=== PATIENT | male | born 1985 ===

== ENCOUNTER 2017-10-27 09:22 | Inpatient (IN) | payer MEDICAID ==
[2017-10-27 09:22] VITALS: BMI 32.1
--- NOTE | 2017-10-27 10:11 | ED PDOC ---
Lower Extremity Pain/Injury Time Seen by Provider: 10/27/17 09:45 Chief Complaint (Nursing): Lower Extremity Problem/Injury Chief Complaint (Provider): Lower Extremity Problem/Injury History Per: Patient History/Exam Limitations: no limitations Onset/Duration Of Symptoms: Days (x3) Current Symptoms Are (Timing): Still Present Additional Complaint(s): 32 year old male with medical history of asthma, pre-diabetes and hypertension, presents to the emergency department with a complaint of bilateral leg swelling associated with mild shortness of breath and cough ongoing for 3 days. He denied any chest pain, leg redness, fall, trauma or urinary complaints. Patient was recently discharged from prolonged hospital admission for liver failure secondary to alcohol use. Of note, patient is a recovering alcoholic and denied any history of CHF or blood clots. PMD: none provided Past Medical History Reviewed: Historical Data, Nursing Documentation, Vital Signs Vital Signs: Last Vital Signs Temp 99 F 10/27/17 09:35 Pulse 110 H 10/27/17 09:35 Resp 20 10/27/17 09:35 BP Pulse Ox 95 10/27/17 09:35 - Medical History PMH: Anemia, Anxiety, Back Problems, Bipolar Disorder, Depression, Gall Bladder Disease, HTN (No Meds), Seizures (Last 2014) Denies: CHF, Diabetes, Hepatitis, HIV, Chronic Kidney Disease, Sexually Transmitted Disease - Surgical History Surgical History: Cholecystectomy ([facility] 2014) - Family History Family History: States: Unknown Family Hx - Social History Current smoker - smoking cessation education provided: No Alcohol: None Drugs: Denies - Immunization History Hx Tetanus Toxoid Vaccination: No Hx Influenza Vaccination: No Hx Pneumococcal Vaccination: No - Home Medications Home Medications: Ambulatory Orders Medication Instructions Recorded Ferrous Sulfate [Feosol] 325 mg PO TID 10/27/17 Folic Acid 1 mg PO DAILY 10/27/17 Gabapentin [Neurontin] 600 mg PO HS 10/27/17 Mirtazapine [Remeron] 15 mg PO HS 10/27/17 Furosemide [Lasix] 40 mg PO DAILY #14 tab 10/30/17 Ibuprofen [Motrin Tab] 800 mg PO BID PRN tab 10/30/17 Spironolactone [Aldactone] 50 mg PO DAILY #14 tab 10/30/17 - Allergies Allergies/Adverse Reactions: Allergies Allergy/AdvReac Type Severity Reaction Status Date / Time SHELLFISH Allergy SWELLING Uncoded 09/11/17 16:44 Review of Systems ROS Statement: Except As Marked, All Systems Reviewed And Found Negative Cardiovascular: Negative for: Chest Pain Respiratory: Positive for: Cough, Shortness of Breath (mild) Genitourinary Male: Negative for: Dysuria, Hematuria Musculoskeletal: Positive for: Other (bilateral leg swelling). Negative for: Leg Pain (or redness bilaterally) Physical Exam - Reviewed Nursing Documentation Reviewed: Yes Vital Signs Reviewed: Yes - Physical Exam Appears: Positive for: Non-toxic, No Acute Distress Head Exam: Positive for: ATRAUMATIC, NORMAL INSPECTION, NORMOCEPHALIC Cardiovascular/Chest: Positive for: Regular Rate, Rhythm Respiratory: Positive for: Normal Breath Sounds (fair bilaterally). Negative for: Decreased Breath Sounds, Wheezing, Respiratory Distress Gastrointestinal/Abdominal: Positive for: Other (obese appearance) Extremity: Positive for: Pedal Edema (3+ bilaterally). Negative for: Deformity (lower) Neurologic/Psych: Positive for: Alert, Oriented - Laboratory Results Result Diagrams: 10/29/17 06:50 10/29/17 06:50 - ECG O2 Sat by Pulse Oximetry: 95 (RA) Pulse Ox Interpretation: Normal Medical Decision Making Medical Decision Making: Initial Impression: Leg edema Differential Diagnosis: DVT; CHF; Sequelae of liver failure Initial Plan: * Alcohol serum * BNP * CMP * CBC * PTT * PT * CXR * US duplex LE Time: 1033 --CXR FINDINGS: LUNGS: No active pulmonary disease. PLEURA: No significant pleural effusion identified. No pneumothorax apparent. CARDIOVASCULAR: Normal. OSSEOUS STRUCTURES: No significant abnormalities. VISUALIZED UPPER ABDOMEN: Normal. OTHER FINDINGS: None. IMPRESSION: Bibasilar patchy opacity, right greater than left. Possible bilateral pneumonia. Followup advised. Time: 1139 --US duplex LE FINDINGS: To compressibility, augmentation, morphology and phasic color Doppler blood flow is appreciate within the bilateral common and superficial femoral and popliteal veins with the bilateral post tibial veins patent. Note is made of bilateral subcutaneous edema overlying calves. 2.2 x 0.7 cm lymph node is seen at at the right inguinal/ proximal anterior thigh deep soft tissues. OTHER FINDINGS: None. IMPRESSION: No sonographic evidence of deep venous thrombosis bilateral lower extremities. Incidental mildly enlarged lymph node distal right inguinal region/proximal right anterior thigh. --------- treatment was initiated for HCAP given recent hospitalization and CXR findings to follow anemia, PRBC. Admit Dr Shea Scribe Attestation: Documented by Anisa Marc, acting as a scribe for Luis Felipe Dickey III, DO. Provider Scribe Attestation: All medical record entries made by the Scribe were at my direction and personally dictated by me. I have reviewed the chart and agree that the record accurately reflects my personal performance of the history, physical exam, medical decision making, and the department course for this patient. I have also personally directed, reviewed, and agree with the discharge instructions and disposition. Disposition - Clinical Impression Clinical Impression: HCAP (healthcare-associated pneumonia), Anemia, Alcoholic liver failure - Patient ED Disposition Is Patient to be Admitted: Yes - Disposition Disposition Time: 11:30 Condition: FAIR - Pt Status Changed To: Hospital Disposition Of: Inpatient - Admit Certification Admit to Inpatient:: After my assessment, the patient will require hospitalization for at least two midnights. This is because of the severity of symptoms shown, intensity of services needed, and/or the medical risk in this patient being treated as an outpatient. - POA Present On Arrival: None
[2017-10-27 10:22] LABS: BASO # 0.1 K/uL (0.0-0.2); BASO % 0.5 % (0.0-2.0); EOS # 0.1 K/uL (0.0-0.7); EOS % 0.5 % (0.0-4.0); HEMOGLOBIN 7.4 g/dL (12.0-18.0); LYMPH # 2.5 K/uL (1.0-4.3); LYMPH % 14.7 % (20.0-40.0); MEAN CELL VOLUME 83.6 fl (80.0-94.0); MEAN CORPUSCULAR HEMOGLOBIN 25.8 pg (27.0-31.0); MEAN CORPUSCULAR HGB CONC 30.9 g/dL (33.0-37.0); MEAN PLATELET VOLUME 7.4 fl (7.2-11.7); MONO % 5.7 % (0.0-10.0); NEUT # 13.2 K/uL (1.8-7.0); NEUT % 78.6 % (50.0-75.0); RBC 2.87 Mil/uL (4.40-5.90); RED CELL DISTRIBUTION WIDTH 19.8 % (11.5-14.5); WHITE BLOOD COUNT 16.8 K/uL (4.8-10.8)
[2017-10-27 10:34] LABS: INR 1.7 (0.9-1.2); PARTIAL THROMBOPLASTIN TIME 32.7 Seconds (25.6-37.1); PROTHROMBIN TIME 18.7 Seconds (9.8-13.1)
--- NOTE | 2017-10-27 10:35 | RAD ---
HISTORY: chest pain/ r/o infiltrate COMPARISON: 08/06/2014 TECHNIQUE: Patchy opacity at both lung bases, right greater than left. Possible pneumonia. Follow-up advised. FINDINGS: LUNGS: No active pulmonary disease. PLEURA: No significant pleural effusion identified. No pneumothorax apparent. CARDIOVASCULAR: Normal. OSSEOUS STRUCTURES: No significant abnormalities. VISUALIZED UPPER ABDOMEN: Normal. OTHER FINDINGS: None. IMPRESSION: Bibasilar patchy opacity, right greater than left. Possible bilateral pneumonia. Followup advised.
[2017-10-27 10:47] LABS: ALB/GLOB RATIO 0.8 (1.0-2.1); ALT/SGPT 75 U/L (21-72); AST/SGOT 56 U/L (17-59); BLOOD UREA NITROGEN 19 mg/dl (9-20); CALCIUM 8.4 mg/dL (8.4-10.2); GFR AFRICAN-AMERICAN > 60; GFR NON-AFRICAN AMERICAN > 60
[2017-10-27 10:54] LABS: B-TYPE NATRIURETIC PEPTIDE 550 pg/ml (0-450)
--- NOTE | 2017-10-27 11:41 | US ---
PROCEDURE: Bilateral lower extremity venous duplex Doppler. HISTORY: edema COMPARISON: None available. TECHNIQUE: Bilateral common femoral, superficial femoral, popliteal and posterior tibial veins were evaluated. Flow was assessed with color Doppler, compressibility, assessment of phasic flow and augmentation response. FINDINGS: To compressibility, augmentation, morphology and phasic color Doppler blood flow is appreciate within the bilateral common and superficial femoral and popliteal veins with the bilateral post tibial veins patent. Note is made of bilateral subcutaneous edema overlying calves. 2.2 x 0.7 cm lymph node is seen at at the right inguinal/ proximal anterior thigh deep soft tissues. OTHER FINDINGS: None. IMPRESSION: No sonographic evidence of deep venous thrombosis bilateral lower extremities. Incidental mildly enlarged lymph node distal right inguinal region/proximal right anterior thigh.
[2017-10-27] MEDS ORDERED: Piperacillin/Tazobact 3.375 GM in Sodium Chloride 0.9% 100 ML IVPB STA (12:40)
[2017-10-27 12:51] LABS: VENOUS BLOOD GAS BASE EXCESS 8.1 mmol/L (0.0-2.0); VENOUS BLOOD GAS PCO2 48 mmHg (40-60); VENOUS BLOOD GAS PO2 41 mm/Hg (30-55); VENOUS BLOOD PH 7.45 (7.32-7.43)
[2017-10-27] MEDS ORDERED: Piperacillin/Tazobact 3.375 gm Inj IVPB ONE (13:08)
--- NOTE | 2017-10-27 13:13 | CP.PCM.HP ---
<AndradeOsiel - Last Filed: 10/27/17 14:28> History of Present Illness - History of Present Illness History of Present Illness: 32 y/o M with Hx of obesity, Gastric bypass Sx, etoh and opioid abuse, recently diagnosed with alcoholic liver disease and chronic anemia presented to ED c/o worsening LE edema, cough and fatigue. As per patient he was admitted to [facility] 1 month ago after being diagnosed with liver disease and anemia when he presented for detox program for etoh and opioid abuse. As per patient he started drinking in Jul 2015 about 1 gallon per day of whiskey until 1 month ago. hE also admits taking percocet 4 times a day at home that he buys on the street for chronic lower back pain for what he also takes Gabapentin. report Hx of gastric bypass Sx many years ago and is not taking any supplements as advised. Patient has been noticing worsening LE edema for the past week as well as fatigue and dry cough for 3-4 days that Yesterday became productive with brownish sputum. Afebrile. Denies sick contacts, liver with Uncle. Present on Admission - Present on Admission Any Indicators Present on Admission: No Review of Systems - Review of Systems All systems: reviewed and no additional remarkable complaints except - Constitutional Constitutional: Fatigue - Cardiovascular Cardiovascular: Pedal Edema - Respiratory Respiratory: Cough Past Patient History - Past Medical History & Family History Past Medical History?: Yes - Past Social History Alcohol: Other (Heavy drinker till 1 month ago) Drugs: Opiates (Percocet) Home Situation {Lives}: With Family - CARDIAC Hx Congestive Heart Failure: No Hx Hypertension: Yes (No Meds) - PULMONARY Hx Respiratory Disorders: No - NEUROLOGICAL Hx Seizures: Yes (Last 2014) - HEENT Hx HEENT Problems: No - RENAL Hx Chronic Kidney Disease: No - ENDOCRINE/METABOLIC Other/Comment: Prediabetes - HEMATOLOGICAL/ONCOLOGICAL Hx Anemia: Yes Hx Human Immunodeficiency Virus (HIV): No Other/Comment: Alcoholic hepatitis - INTEGUMENTARY Hx Dermatological Problems: No - MUSCULOSKELETAL/RHEUMATOLOGICAL Hx Falls: Yes (2 WEEKS AGO) - GASTROINTESTINAL Hx Gall Bladder Disease: Yes - GENITOURINARY/GYNECOLOGICAL Hx Sexually Transmitted Disorders: No - PSYCHIATRIC Hx Anxiety: Yes Hx Bipolar Disorder: Yes Hx Depression: Yes - SURGICAL HISTORY Hx Cholecystectomy: Yes ([facility] 2014) - ANESTHESIA Hx Anesthesia: Yes Hx Anesthesia Reactions: No Hx Malignant Hyperthermia: No Meds Allergies/Adverse Reactions: Allergies Allergy/AdvReac Type Severity Reaction Status Date / Time SHELLFISH Allergy SWELLING Uncoded 09/11/17 16:44 Physical Exam - Constitutional Appears: Other (Obese) - Eye Exam Eye Exam: EOMI, PERRL - ENT Exam ENT Exam: Mucous Membranes Moist - Respiratory Exam Respiratory Exam: Decreased Breath Sounds (B/L), NORMAL BREATHING PATTERN. absent: Wheezes, Respiratory Distress - Cardiovascular Exam Cardiovascular Exam: REGULAR RHYTHM, +S1, +S2. absent: Gallop - GI/Abdominal Exam GI & Abdominal Exam: Normal Bowel Sounds, Soft. absent: Rebound, Rigid, Tenderness - Extremities Exam Extremities exam: Positive for: normal capillary refill, pedal edema (+2). Negative for: calf tenderness, tenderness - Neurological Exam Neurological exam: Alert, Normal Gait, Oriented x3 - Psychiatric Exam Psychiatric exam: Normal Affect, Normal Mood - Skin Skin Exam: Pallor, Warm Results - Vital Signs Recent Vital Signs: Last Vital Signs Temp 99 F 10/27/17 09:35 Pulse 110 H 10/27/17 09:35 Resp 20 10/27/17 09:35 BP 113/63 10/27/17 11:51 Pulse Ox 95 10/27/17 11:45 - Labs Result Diagrams: 10/27/17 10:19 10/27/17 10:19 Labs: Laboratory Results - last 24 hr 10/27/17 10/27/17 10/27/17 10:19 10:19 10:19 WBC 16.8 H D RBC 2.87 L Hgb 7.4 L D Hct 24.0 L MCV 83.6 D MCH 25.8 L MCHC 30.9 L RDW 19.8 H Plt Count 148 MPV 7.4 Neut % (Auto) 78.6 H Lymph % (Auto) 14.7 L [place] % (Auto) 5.7 Eos % (Auto) 0.5 Baso % (Auto) 0.5 Neut # (Auto) 13.2 H Lymph # (Auto) 2.5 [place] # (Auto) 1.0 H Eos # (Auto) 0.1 Baso # (Auto) 0.1 PT 18.7 H INR 1.7 H APTT 32.7 pO2 VBG pH VBG pCO2 VBG HCO3 VBG Total CO2 VBG O2 Sat (Calc) VBG Base Excess VBG Potassium Glucose Lactate FiO2 Sodium 141 Potassium 3.7 Chloride 101 Carbon Dioxide 29 Anion Gap 15 BUN 19 Creatinine 0.6 L Est GFR ( Amer) > 60 Est GFR (Non-Af Amer) > 60 Random Glucose 86 Calcium 8.4 Total Bilirubin 2.5 H AST 56 ALT 75 H D Alkaline Phosphatase 104 NT-Pro-B Natriuret Pep 550 H Total Protein 6.7 Albumin 3.0 L Globulin 3.7 Albumin/Globulin Ratio 0.8 L Venous Blood Potassium Alcohol, Quantitative < 10 10/27/17 12:47 WBC RBC Hgb Hct MCV MCH MCHC RDW Plt Count MPV Neut % (Auto) Lymph % (Auto) [place] % (Auto) Eos % (Auto) Baso % (Auto) Neut # (Auto) Lymph # (Auto) [place] # (Auto) Eos # (Auto) Baso # (Auto) PT INR APTT pO2 41 VBG pH 7.45 H VBG pCO2 48 VBG HCO3 30.7 VBG Total CO2 34.9 H VBG O2 Sat (Calc) 81.6 H VBG Base Excess 8.1 H VBG Potassium 3.6 Glucose 83 Lactate 0.8 FiO2 21.0 Sodium 140.0 Potassium Chloride 108.0 H Carbon Dioxide Anion Gap BUN Creatinine Est GFR ( Amer) Est GFR (Non-Af Amer) Random Glucose Calcium Total Bilirubin AST ALT Alkaline Phosphatase NT-Pro-B Natriuret Pep Total Protein Albumin Globulin Albumin/Globulin Ratio Venous Blood Potassium 3.6 Alcohol, Quantitative Assessment & Plan - Assessment and Plan (Free Text) Assessment: 32 y/o admitted for HCAP and Anemia HCAP CXR suspected Pneumonia Hx of recent hosp admission C/w Vanco/Zosyn Duonebs PRN Afebrile Elevated WBC Anemia, microcitic Hgb 7s Poss chronic disease Vit b12/Folate and iron studies 1 month ago unremarkable Hx of gastric bypass C/W IRON PO 1 unit of PRBC ordered No active bleeding LE Edema/Fatigue ProBnp 550 LE US neg for DVT Elevate legs/antiembolic stocking F/U Echo Lasix 40mg PO once <Kostas Shea - Last Filed: 10/31/17 15:02> Results - Vital Signs Recent Vital Signs: Last Vital Signs Temp 98.9 F 10/30/17 08:53 Pulse 94 H 10/30/17 08:53 Resp 20 10/30/17 08:53 BP 127/86 10/30/17 08:53 Pulse Ox 96 10/30/17 08:53 - Labs Result Diagrams: 10/29/17 06:50 10/29/17 06:50 Assessment & Plan - Assessment and Plan (Free Text) Plan: Saw and examined patient with resident. Plan of care discussed, agree with above
[2017-10-27] MEDS ORDERED: Albuterol-Ipratrop 3 mg / 0.5 (3 ml) UD INH PRN (14:27)
[2017-10-27] MEDS: Piperacillin/Tazobact 3.375 GM in Sodium Chloride 0.9% 100 ML IVPB SCH ×2 (21:20→21:54)
[2017-10-28] MEDS: Piperacillin/Tazobact 3.375 GM in Sodium Chloride 0.9% 100 ML IVPB SCH ×5 (04:07→21:46)
[2017-10-28 07:22] LABS: URINE BACTERIA FEW (<OCC); URINE BILIRUBIN NEGATIVE (NEGATIVE); URINE BLOOD MODERATE (NEGATIVE); URINE CLARITY CLEAR (Clear); URINE COLOR YELLOW (YELLOW); URINE GLUCOSE (UA) NEG (Normal); URINE LEUKOCYTE ESTERASE NEG Leu/uL (Negative); URINE PROTEIN NEGATIVE (NEGATIVE)
[2017-10-28 07:34] LABS: BASO % 0.5 % (0.0-2.0); EOS # 0.1 K/uL (0.0-0.7); EOS % 1.3 % (0.0-4.0); HEMOGLOBIN 7.9 g/dL (12.0-18.0); LYMPH # 2.3 K/uL (1.0-4.3); LYMPH % 24.2 % (20.0-40.0); MEAN CORPUSCULAR HEMOGLOBIN 26.8 pg (27.0-31.0); MEAN CORPUSCULAR HGB CONC 32.7 g/dL (33.0-37.0); MEAN PLATELET VOLUME 7.5 fl (7.2-11.7); MONO # 0.5 K/uL (0.0-0.8); MONO % 5.6 % (0.0-10.0); NEUT # 6.5 K/uL (1.8-7.0); NEUT % 68.4 % (50.0-75.0); RBC 2.95 Mil/uL (4.40-5.90); WHITE BLOOD COUNT 9.6 K/uL (4.8-10.8)
[2017-10-28 08:03] LABS: ALB/GLOB RATIO 0.8 (1.0-2.1); ALBUMIN 2.8 g/dL (3.5-5.0); ALT/SGPT 63 U/L (21-72); AST/SGOT 52 U/L (17-59); BLOOD UREA NITROGEN 14 mg/dl (9-20); CALCIUM 8.3 mg/dL (8.4-10.2); GFR AFRICAN-AMERICAN > 60; GFR NON-AFRICAN AMERICAN > 60
[2017-10-28] MEDS ORDERED: DiphenhydrAMINE 50 mg/ml Inj IVP STA (10:48)
--- NOTE | 2017-10-28 14:01 | CARD ---
APPROVED REPORT EXAM: Two-dimensional and M-mode echocardiogram with Doppler and color Doppler. Other Information Quality : GoodRhythm : NSR Technically limited study due to body habitus. INDICATION Peripheral Edema 2D DIMENSIONS IVSd1.09 (0.7-1.1cm)LVDd6.03 (3.9-5.9cm) LVOT Diameter2.36 (1.8-2.4cm)PWd1.07 (0.7-1.1cm) IVSs1.42 (0.8-1.2cm)LVDs3.76 (2.5-4.0cm) FS (%) 37.7 %PWs1.53 (0.8-1.2cm) M-Mode DIMENSIONS Left Atrium (MM)5.27 (2.5-4.0cm)IVSd1.01 (0.7-1.1cm) Aortic Root3.42 (2.2-3.7cm)LVDd8.14 (4.0-5.6cm) Aortic Cusp Exc.2.44 (1.5-2.0cm)PWd1.12 (0.7-1.1cm) IVSs1.75 cmFS (%) 36 % LVDs5.17 (2.0-3.8cm)PWs1.36 cm Mitral Valve E/A ratio0.0 TDI E/Lateral E'0.0E/Medial E'0.0 Pulmonary Valve PV Peak [id number]/s Tricuspid Valve TR Peak [id number] [id number] Peak Gr.26mmHg [id number] LEFT VENTRICLE The left ventricle is normal size. There is normal left ventricular wall thickness. Left ventricle systolic function is normal. The Ejection Fraction is 60-65%. There is normal LV segmental wall motion. The left ventricular diastolic function is normal. RIGHT VENTRICLE The right ventricle is normal size. There is normal right ventricular wall thickness. The right ventricular systolic function is normal. ATRIA The left atrium size is normal. The right atrium size is normal. AORTIC VALVE The aortic valve is normal in structure. No aortic regurgitation is present. There is no aortic valvular stenosis. MITRAL VALVE The mitral valve is normal in structure. There is no evidence of mitral valve prolapse. There is no mitral valve stenosis. There is no mitral valve regurgitation noted. TRICUSPID VALVE The tricuspid valve is normal in structure. There is mild tricuspid regurgitation. Right ventricular systolic pressure is estimated at 44 mmHg. There is mild-moderate pulmonary hypertension. PULMONIC VALVE The pulmonary valve is normal in structure. There is no pulmonic valvular regurgitation. GREAT VESSELS The aortic root is normal in size. Due to poor image quality, the IVC could not be assessed. PERICARDIAL EFFUSION The pericardium appears normal. <Conclusion> The left ventricle is normal size. There is normal left ventricular wall thickness. There is normal LV segmental wall motion. Left ventricle systolic function is normal. The Ejection Fraction is 60-65%. The left ventricular diastolic function is normal.
--- NOTE | 2017-10-28 15:00 | CARD ---
APPROVED REPORT EKG Measurement Heart [id number] <Conclusion> Normal sinus rhythm Normal ECG
--- NOTE | 2017-10-28 17:23 | CP.PCM.PN ---
Subjective - Date & Time of Evaluation Date of Evaluation: 10/28/17 Time of Evaluation: 12:00 - Subjective Subjective: Patient complains of vague diffused pain on most of his body and joints and claims that he has been on Percocet 10 mg for a long time that it may a withdrawal sx. Has no headaches Has no chest pain Noted elevated bilirubin Claims that his last alcohol intake was a month ago. Still with bilateral leg edema pitting. Noted normal WBc but Hgb remains low even after transfusion Now at 7.9 Objective - Vital Signs/Intake and Output Vital Signs (last 24 hours): Temp Pulse Resp BP Pulse Ox 99.1 F 91 H 20 133/90 98 10/28/17 17:06 10/28/17 16:36 10/28/17 16:36 10/28/17 17:13 10/28/17 16:36 - Medications Medications: Current Medications Albuterol/Ipratropium (Duoneb 3 Mg/0.5 Mg (3 Ml) Ud) 3 ml INH RQ6 PRN PRN Reason: Shortness of Breath Diphenhydramine HCl (Benadryl) 25 mg PO HS PRN PRN Reason: Insomnia Last Admin: 10/28/17 02:25 Dose: 25 mg Ferrous Sulfate (Feosol) 325 mg PO TID [facility] Last Admin: 10/28/17 17:05 Dose: 325 mg Folic Acid (Folic Acid) 1 mg PO DAILY [facility] Last Admin: 10/28/17 10:12 Dose: 1 mg Furosemide (Lasix) 40 mg PO DAILY [facility] Last Admin: 10/28/17 17:13 Dose: 40 mg Gabapentin (Neurontin) 600 mg PO HS [facility] Last Admin: 10/27/17 21:52 Dose: 600 mg Vancomycin HCl 1 gm/ Sodium (Chloride) 250 mls @ 166.667 mls/hr IVPB Q12 [facility] PRN Reason: Protocol Last Admin: 10/28/17 11:45 Dose: 166.667 mls/hr Piperacillin Sod/Tazobactam (Sod 3.375 gm/ Sodium Chloride) 100 mls @ 100 mls/ hr IVPB Q6 [facility] PRN Reason: Protocol Last Admin: 10/28/17 17:17 Dose: 100 mls/hr Ibuprofen (Motrin Tab) 800 mg PO BID PRN PRN Reason: Pain, Mild (1-3) Last Admin: 10/28/17 17:06 Dose: 800 mg Spironolactone (Aldactone) 50 mg PO DAILY [facility] Last Admin: 10/28/17 17:05 Dose: 50 mg Tramadol HCl (Ultram) 50 mg PO Q6 PRN PRN Reason: Pain, moderate (4-7) Last Admin: 10/28/17 11:54 Dose: 50 mg - Labs Labs: 10/28/17 06:04 10/28/17 06:04 PT 18.7 Seconds (9.8-13.1) H 10/27/17 10:19 INR 1.7 (0.9-1.2) H 10/27/17 10:19 APTT 32.7 Seconds (25.6-37.1) 10/27/17 10:19
[2017-10-29] MEDS: DiphenhydrAMINE 50 mg/ml Inj IVP PRN ×3 (00:32→17:23)
[2017-10-29] MEDS: Piperacillin/Tazobact 3.375 GM in Sodium Chloride 0.9% 100 ML IVPB SCH ×4 (04:11→22:49)
[2017-10-29 08:43] LABS: MEAN CELL VOLUME 83.3 fl (80.0-94.0); MEAN CORPUSCULAR HEMOGLOBIN 26.8 pg (27.0-31.0); MEAN CORPUSCULAR HGB CONC 32.2 g/dL (33.0-37.0); RBC 3.35 Mil/uL (4.40-5.90); RED CELL DISTRIBUTION WIDTH 19.3 % (11.5-14.5); WHITE BLOOD COUNT 7.2 K/uL (4.8-10.8)
[2017-10-29 08:49] LABS: BLOOD UREA NITROGEN 9 mg/dl (9-20); CALCIUM 8.5 mg/dL (8.4-10.2); GFR AFRICAN-AMERICAN > 60; GFR NON-AFRICAN AMERICAN > 60
[2017-10-29 09:17] LABS: FERRITIN 33.6 ng/Ml (17.9-464)
--- NOTE | 2017-10-29 10:19 | US ---
HISTORY: attention liver and gallbladder COMPARISON: CT scan April 02, 2015 TECHNIQUE: Sonographic evaluation of the right upper quadrant of the abdomen. FINDINGS: LIVER: Measures 17.7 cm in length. Diffusely increased echogenicity of the liver parenchyma. There is evidence of a small ovoid non hypervascular cystic area in the left lobe of the liver measuring 2.5 x 1.3 x 2.7 centimeters. No internal echoes or wall thickening is seen. This was not seen on the prior CT scan and may reflect a hepatic cyst and/or other adjacent postsurgical change from the patient's previous bypass surgery. This may be slightly extrinsic to the left lobe of the liver on a few of the images. No other focal mass is seen in the liver. No intrahepatic ductal dilatation is seen. GALLBLADDER: Removed COMMON BILE DUCT: Measures 5 mm. No stones. No dilatation. PANCREAS: Suboptimally visualized due to overlying bowel gas and body habitus. No appreciable peripancreatic inflammatory changes are noted. RIGHT KIDNEY: Measures 14 cm in length. Normal echogenicity. No calculus, mass, or hydronephrosis. AORTA: Visualized aorta is unremarkable although limited by overlying bowel gas. IVC: Unremarkable. OTHER FINDINGS: Exam is limited by body habitus. IMPRESSION: Enlarged liver with moderate fatty infiltration. No intrahepatic ductal dilatation is seen. Common bile duct measures 5 millimeters. Small smoothly marginated benign-appearing hypoechoic cystic structure in the liver or abutting the left lobe of the liver. Status post cholecystectomy. Limited evaluation of the pancreas.
--- NOTE | 2017-10-29 10:22 | RAD ---
HISTORY: pneumonia COMPARISON: 10/27/2017 FINDINGS: LUNGS: No new focal infiltrate. Minimal volume loss at the lung bases. PLEURA: No significant pleural effusion identified, no pneumothorax apparent. CARDIOVASCULAR: Heart is enlarged. OSSEOUS STRUCTURES: No significant abnormalities. VISUALIZED UPPER ABDOMEN: Normal. OTHER FINDINGS: None. IMPRESSION: No new focal infiltrate. Cardiomegaly.
[2017-10-29 17:14] LABS: FOLATE > 20.0 ng/mL
--- NOTE | 2017-10-29 22:32 | CP.PCM.PN ---
Subjective - Date & Time of Evaluation Date of Evaluation: 10/29/17 Time of Evaluation: 08:35 - Subjective Subjective: Patient still has a lot of pain on different areas of the body mikhail on different upper body joints. Has no chest pain or SOB. Has minimal cough. Objective - Vital Signs/Intake and Output Vital Signs (last 24 hours): Temp Pulse Resp BP Pulse Ox 98.6 F 89 20 116/66 96 10/29/17 20:00 10/29/17 20:00 10/29/17 20:00 10/29/17 20:00 10/29/17 20:00 Intake and Output: 10/29/17 10/30/17 18:59 06:59 Intake Total 1850 Balance 1850 - Medications Medications: Current Medications Albuterol/Ipratropium (Duoneb 3 Mg/0.5 Mg (3 Ml) Ud) 3 ml INH RQ6 PRN PRN Reason: Shortness of Breath Diphenhydramine HCl (Benadryl) 25 mg PO HS PRN PRN Reason: Insomnia Last Admin: 10/28/17 21:55 Dose: 25 mg Diphenhydramine HCl (Benadryl) 50 mg IVP Q8 PRN PRN Reason: Agitation Last Admin: 10/29/17 17:23 Dose: 50 mg Ferrous Sulfate (Feosol) 325 mg PO TID [facility] Last Admin: 10/29/17 17:17 Dose: 325 mg Folic Acid (Folic Acid) 1 mg PO DAILY [facility] Last Admin: 10/29/17 08:49 Dose: 1 mg Furosemide (Lasix) 40 mg PO DAILY [facility] Last Admin: 10/29/17 08:51 Dose: 40 mg Gabapentin (Neurontin) 600 mg PO HS [facility] Last Admin: 10/28/17 21:46 Dose: 600 mg Vancomycin HCl 1 gm/ Sodium (Chloride) 250 mls @ 166.667 mls/hr IVPB Q12 [facility] PRN Reason: Protocol Last Admin: 10/29/17 08:38 Dose: 166.667 mls/hr Piperacillin Sod/Tazobactam (Sod 3.375 gm/ Sodium Chloride) 100 mls @ 100 mls/ hr IVPB Q6 [facility] PRN Reason: Protocol Last Admin: 10/29/17 17:18 Dose: 100 mls/hr Ibuprofen (Motrin Tab) 800 mg PO BID PRN PRN Reason: Pain, Mild (1-3) Last Admin: 10/29/17 00:32 Dose: 800 mg Spironolactone (Aldactone) 50 mg PO DAILY [facility] Last Admin: 10/29/17 08:37 Dose: 50 mg Tramadol HCl (Ultram) 50 mg PO Q6 PRN PRN Reason: Pain, moderate (4-7) Last Admin: 10/28/17 11:54 Dose: 50 mg - Labs Labs: 10/29/17 06:50 10/29/17 06:50 PT 18.7 Seconds (9.8-13.1) H 10/27/17 10:19 INR 1.7 (0.9-1.2) H 10/27/17 10:19 APTT 32.7 Seconds (25.6-37.1) 10/27/17 10:19
[2017-10-30] MEDS: DiphenhydrAMINE 50 mg/ml Inj IVP PRN (00:59)
[2017-10-30] MEDS: Piperacillin/Tazobact 3.375 GM in Sodium Chloride 0.9% 100 ML IVPB SCH (05:28)
[2017-10-30 08:27] VITALS: RESP 20; TEMP 98.9
[2017-10-30 08:53] VITALS: BP 127/86; PULSE 94
[2017-11-01 13:54] VITALS: O2SAT 95
--- NOTE | 2017-11-06 13:44 | CP.PCM.DIS ---
Provider - Provider Date of Admission: 10/27/17 12:42 Attending physician: Kostas Shea MD Time Spent in preparation of Discharge (in minutes): 30 Diagnosis - Discharge Diagnosis (1) HCAP (healthcare-associated pneumonia) Status: Acute Priority: High Comment: WBC elevated on admission, pt treated for HCAP with iv abx. responded well, dcd on po antibiotics. Leukocytosis resolved. Final blood cultures negative. (2) Alcohol dependence Status: Chronic (3) Opiate dependence Status: Chronic Priority: Medium Comment: Pt counceled for opiod dependence and recommended to follow up with pain management. Hospital Course - Lab Results Lab Results: Micro Results 10/27/17 12:59 Blood Blood Culture - Final NO GROWTH AFTER 5 DAYS 10/27/17 12:59 Blood Gram Stain - Final TEST NOT PERFORMED Most Recent Lab Values WBC 7.2 K/uL (4.8-10.8) 10/29/17 06:50 RBC 3.35 Mil/uL (4.40-5.90) L 10/29/17 06:50 Hgb 9.0 g/dL (12.0-18.0) L 10/29/17 06:50 Hct 28.0 % (35.0-51.0) L 10/29/17 06:50 MCV 83.3 fl (80.0-94.0) 10/29/17 06:50 MCH 26.8 pg (27.0-31.0) L 10/29/17 06:50 MCHC 32.2 g/dL (33.0-37.0) L 10/29/17 06:50 RDW 19.3 % (11.5-14.5) H 10/29/17 06:50 Plt Count 147 K/uL (130-400) 10/29/17 06:50 MPV 7.5 fl (7.2-11.7) 10/28/17 06:04 Neut % (Auto) 68.4 % (50.0-75.0) 10/28/17 06:04 Lymph % (Auto) 24.2 % (20.0-40.0) 10/28/17 06:04 [place] % (Auto) 5.6 % (0.0-10.0) 10/28/17 06:04 Eos % (Auto) 1.3 % (0.0-4.0) 10/28/17 06:04 Baso % (Auto) 0.5 % (0.0-2.0) 10/28/17 06:04 Neut # (Auto) 6.5 K/uL (1.8-7.0) 10/28/17 06:04 Lymph # (Auto) 2.3 K/uL (1.0-4.3) 10/28/17 06:04 [place] # (Auto) 0.5 K/uL (0.0-0.8) 10/28/17 06:04 Eos # (Auto) 0.1 K/uL (0.0-0.7) 10/28/17 06:04 Baso # (Auto) 0.0 K/uL (0.0-0.2) 10/28/17 06:04 PT 18.7 Seconds (9.8-13.1) H 10/27/17 10:19 INR 1.7 (0.9-1.2) H 10/27/17 10:19 APTT 32.7 Seconds (25.6-37.1) 10/27/17 10:19 pO2 41 mm/Hg (30-55) 10/27/17 12:47 VBG pH 7.45 (7.32-7.43) H 10/27/17 12:47 VBG pCO2 48 mmHg (40-60) 10/27/17 12:47 VBG HCO3 30.7 mmol/L 10/27/17 12:47 VBG Total CO2 34.9 mmol/L (22-28) H 10/27/17 12:47 VBG O2 Sat (Calc) 81.6 % (40-65) H 10/27/17 12:47 VBG Base Excess 8.1 mmol/L (0.0-2.0) H 10/27/17 12:47 VBG Potassium 3.6 mmol/L (3.6-5.2) 10/27/17 12:47 Sodium 140.0 mmol/L (132-148) 10/27/17 12:47 Chloride 108.0 mmol/L (98-107) H 10/27/17 12:47 Glucose 83 mg/dL (75-110) 10/27/17 12:47 Lactate 0.8 mmol/L (0.7-2.1) 10/27/17 12:47 FiO2 21.0 % 10/27/17 12:47 Sodium 141 mmol/l (132-148) 10/29/17 06:50 Potassium 3.9 MMOL/L (3.6-5.0) 10/29/17 06:50 Chloride 102 mmol/L (98-107) 10/29/17 06:50 Carbon Dioxide 24 mmol/L (22-30) 10/29/17 06:50 Anion Gap 19 (10-20) 10/29/17 06:50 BUN 9 mg/dl (9-20) 10/29/17 06:50 Creatinine 0.6 mg/dl (0.8-1.5) L 10/29/17 06:50 Est GFR ( Amer) > 60 10/29/17 06:50 Est GFR (Non-Af Amer) > 60 10/29/17 06:50 POC Glucose (mg/dL) 75 mg/dL (65-110) 10/29/17 05:46 Random Glucose 82 mg/dL (75-110) 10/29/17 06:50 Calcium 8.5 mg/dL (8.4-10.2) 10/29/17 06:50 Iron 43 ug/dL (49-181) L 10/29/17 06:50 Ferritin 33.6 ng/Ml (17.9-464) 10/29/17 06:50 Total Bilirubin 3.0 mg/dl (0.2-1.3) H 10/28/17 06:04 AST 52 U/L (17-59) 10/28/17 06:04 ALT 63 U/L (21-72) 10/28/17 06:04 Alkaline Phosphatase 97 U/L (38-126) 10/28/17 06:04 NT-Pro-B Natriuret Pep 550 pg/ml (0-450) H 10/27/17 10:19 Total Protein 6.2 G/DL (6.3-8.2) L 10/28/17 06:04 Albumin 2.8 g/dL (3.5-5.0) L 10/28/17 06:04 Globulin 3.4 gm/dL (2.2-3.9) 10/28/17 06:04 Albumin/Globulin Ratio 0.8 (1.0-2.1) L 10/28/17 06:04 Vitamin B12 848 pg/mL (239-931) 10/29/17 06:50 Folate > 20.0 ng/mL 10/29/17 06:50 Procalcitonin 0.20 NG/ML (0.19-0.49) 10/28/17 06:04 Venous Blood Potassium 3.6 mmol/L (3.6-5.2) 10/27/17 12:47 Urine Color Yellow (YELLOW) 10/28/17 07:05 Urine Clarity Clear (Clear) 10/28/17 07:05 Urine pH 8.0 (5.0-8.0) 10/28/17 07:05 Ur Specific [place] 1.014 (1.003-1.030) 10/28/17 07:05 Urine Protein Negative mg/dL (NEGATIVE) 10/28/17 07:05 Urine Glucose (UA) Neg mg/dL (Normal) 10/28/17 07:05 Urine Ketones Negative mg/dL (NEGATIVE) 10/28/17 07:05 Urine Blood Moderate (NEGATIVE) 10/28/17 07:05 Urine Nitrate Negative (NEGATIVE) 10/28/17 07:05 Urine Bilirubin Negative (NEGATIVE) 10/28/17 07:05 Urine Urobilinogen 2.0 mg/dL (0.2-1.0) 10/28/17 07:05 Ur Leukocyte Esterase Neg Alina/uL (Negative) 10/28/17 07:05 Urine RBC (Auto) 82 /hpf (0-3) H 10/28/17 07:05 Urine Microscopic WBC 1 /hpf (0-5) 10/28/17 07:05 Urine Bacteria Few (<OCC) H 10/28/17 07:05 Alcohol, Quantitative < 10 mg/dl (0-10) 10/27/17 10:19 Blood Type A POSITIVE 10/27/17 13:09 Antibody Screen Negative 10/27/17 13:09 Crossmatch See Detail 10/27/17 13:09 BBK History Checked Patient has bt 10/27/17 13:09 Discharge Exam - Head Exam Head Exam: ATRAUMATIC, NORMAL INSPECTION, NORMOCEPHALIC Discharge Plan - Discharge Medications Prescriptions: Spironolactone [Aldactone] 50 mg PO DAILY #14 tab Furosemide [Lasix] 40 mg PO DAILY #14 tab - Follow Up Plan Condition: FAIR Disposition: HOME/ ROUTINE Additional Instructions: pt. doing well this am. denies sob, cp, cough, fever or chills repeat chest xray negative lungs CTA VSS, pt. cleared for discharge to Home today by pt. will f/u with pmd in 1 week Referrals: Ian Hassan MD [Family Provider] -
== END 2017-10-30 10:41 | disposition home or self-care (01) | DRG 89 ==
LOC: H.ER 09:22 → H.ERHOLD 12:42 → H.TEL 18:24
PROVIDERS: ADMIT Family Medicine; ATTEND Family Medicine
DX: J18.9 Pneumonia, unspecified organism (principal); F11.20 Opioid dependence, uncomplicated; K70.10 Alcoholic hepatitis without ascites; Z68.42 Body mass index [BMI] 45.0-49.9, adult; I10 Essential (primary) hypertension; D50.9 Iron deficiency anemia, unspecified; F10.20 Alcohol dependence, uncomplicated; J45.909 Unspecified asthma, uncomplicated; Y95 Nosocomial condition; Z98.84 Bariatric surgery status; E66.9 Obesity, unspecified; R73.03 Prediabetes

== ENCOUNTER 2018-02-19 11:46 | Inpatient (IN) | payer MEDICAID ==
[2018-02-19 11:47] VITALS: BMI 38.5
[2018-02-19] MEDS ORDERED: Multivitamin (MVI) 10 ML, Thiamine 100 MG, Folic Acid 1 MG in Sodium Chloride 0.9% 1,00... IV ONE (12:24)
--- NOTE | 2018-02-19 12:52 | RAD ---
HISTORY: clearance COMPARISON: 10/29/2017 FINDINGS: LUNGS: Hazy opacity in the lung bases which could represent atelectasis. PLEURA: No significant pleural effusion identified, no pneumothorax apparent. CARDIOVASCULAR: Stable cardiomediastinal silhouette. OSSEOUS STRUCTURES: No significant abnormalities. VISUALIZED UPPER ABDOMEN: Upper abdomen is suboptimally evaluated. OTHER FINDINGS: None. IMPRESSION: Hazy opacity in the lung bases.
--- NOTE | 2018-02-19 13:17 | ED PDOC ---
HPI: Psych/Substance Abuse Time Seen by Provider: 02/19/18 12:04 Chief Complaint (Nursing): Alcohol Ingestion Chief Complaint (Provider): Alcohol Ingestion History Per: Patient History/Exam Limitations: intoxication Onset/Duration Of Symptoms: Hrs Current Symptoms Are (Timing): Still Present Modifying Factor(s): Alcohol Additional Complaint(s): 32 y/o male with a PMHx of HTN, high cholesterol, and anemia presents to the ED for alcoholism detox. Patient states he called the ambulance to bring him here as he wants to go through a detox for alcoholism. Patient reports he drinks daily. Patient states he has gone through a detox several times. Patient additionally states that he has "liver problems". Patient further reports his skin is usually yellow and that his skin color is normal for him. Patient states he sees a specialist for liver in [place], [place]. Patient offers no additional complaints at this time. Denies fall, trauma, abdominal pain, chest pain, headache, head injury, suicidal ideation, homicidal ideation, and hallucinations. PMD: None Provided Past Medical History Reviewed: Historical Data, Nursing Documentation, Vital Signs Vital Signs: Last Vital Signs Temp 97.8 F 02/19/18 11:51 Pulse 127 H 02/19/18 11:51 Resp 21 02/19/18 11:51 BP 117/51 L 02/19/18 11:51 Pulse Ox 99 02/19/18 11:51 - Medical History PMH: Anemia, Anxiety, Back Problems, Bipolar Disorder, Depression, Gall Bladder Disease, HTN (No Meds), Hyperlipidemia, Pneumonia (10/2017), Seizures (Last 2014) Denies: CHF, Diabetes, Hepatitis, HIV, Chronic Kidney Disease, Sexually Transmitted Disease - Surgical History Surgical History: Cholecystectomy ([facility] 2014) - Family History Family History: States: Unknown Family Hx - Immunization History Hx Tetanus Toxoid Vaccination: No Hx Influenza Vaccination: No Hx Pneumococcal Vaccination: No - Home Medications Home Medications: Ambulatory Orders Medication Instructions Recorded Atenolol [Tenormin] 25 mg PO Q12 02/19/18 Cyanocobalamin [Vitamin B12 1000 1,000 mcg PO DAILY 02/19/18 mcg Tab] Ergocalciferol (Vitamin D2) 50,000 unit PO QWK 02/19/18 [Vitamin D2] Ferrous Sulfate [Feosol] 325 mg PO Q12 02/19/18 Gabapentin [Neurontin] 600 mg PO Q8 02/19/18 Multivitamin [Multi-Vitamin Daily] 1 tab PO DAILY 02/19/18 Thiamine [Vitamin B1 Tab] 100 mg PO DAILY 02/19/18 traZODone [Desyrel] 50 mg PO HS 02/19/18 - Allergies Allergies/Adverse Reactions: Allergies Allergy/AdvReac Type Severity Reaction Status Date / Time SHELLFISH Allergy SWELLING Uncoded 02/19/18 11:54 Review of Systems Review Of Systems: ROS cannot be obtained secondary to pt's inabilty to answer questions. Gastrointestinal: Negative for: Abdominal Pain Psych: Positive for: Other (EtOH detox) Physical Exam - Reviewed Nursing Documentation Reviewed: Yes Vital Signs Reviewed: Yes - Physical Exam Appears: Positive for: No Acute Distress (alcohol on breath and slurred speech) Head Exam: Positive for: ATRAUMATIC, NORMAL INSPECTION, NORMOCEPHALIC Skin: Positive for: Jaundice Eye Exam: Positive for: Scleral icterus (bilaterally) Neck: Positive for: Normal, Painless ROM Cardiovascular/Chest: Positive for: Regular Rate, Rhythm. Negative for: Murmur Respiratory: Positive for: Normal Breath Sounds Gastrointestinal/Abdominal: Positive for: Normal Exam, Bowel Sounds, Soft, Other (scattered ecchymotic abdomen throughout area). Negative for: Tenderness , Distended, Asicites Extremity: Positive for: Normal ROM. Negative for: Pedal Edema, Deformity Neurologic/Psych: Positive for: Alert, Oriented (x 3). Negative for: Motor/ Sensory Deficits, Aphasia, Facial Droop - Laboratory Results Result Diagrams: 02/19/18 12:50 02/19/18 12:50 - ECG ECG: Positive for: Interpreted By Me ( ) ECG Rhythm: Positive for: Sinus Rhythm. Negative for: ST/T Changes Rate: 99 O2 Sat by Pulse Oximetry: 99 (RA) Pulse Ox Interpretation: Normal Medical Decision Making Medical Decision Making: Time: 1242 Plan: -- Type and Screen -- CT Cervical Spine w/o Contrast -- Chest, Abd, Pelvis w/o Contrast -- CT Head w/o Contrast -- EKG -- Alcohol Serum -- CMP -- Urine Drug Screen -- CBC with differentials -- PTT -- Prothrombin Time -- [Sodium Chloride 1,000 mL MVI-12 inj 10 mL Vitamin B1 Inj 100 mg Folic Acid 1 mg ] IV 150 mls/hr -- 1:1 observation -- Urinalysis Time: 1251 CXR RESULTS FINDINGS: LUNGS: Hazy opacity in the lung bases which could represent atelectasis. PLEURA: No significant pleural effusion identified, no pneumothorax apparent. CARDIOVASCULAR: Stable cardiomediastinal silhouette. OSSEOUS STRUCTURES: No significant abnormalities. VISUALIZED UPPER ABDOMEN: Upper abdomen is suboptimally evaluated. OTHER FINDINGS: None. IMPRESSION: Hazy opacity in the lung bases. Time: [address] RESULTS FINDINGS: HEMORRHAGE: No intracranial hemorrhage. BRAIN: No mass effect or edema. No atrophy or chronic microvascular ischemic changes. VENTRICLES: Unremarkable. No hydrocephalus. CALVARIUM: Unremarkable. PARANASAL SINUSES: Unremarkable as visualized. No significant inflammatory changes. MASTOID AIR CELLS: Unremarkable as visualized. No inflammatory changes. OTHER FINDINGS: None. IMPRESSION: No CT evidence of acute intracranial hemorrhage or acute territorial infarct. Acute infarction may be CT occult within first 24 hours. If a focal deficit persists, consider followup CT or MRI for further evaluation. Time: 1545 CHEST/ABD/PELVIS CT RESULTS FINDINGS: CT CHEST: LUNGS: Small left-sided pleural effusion with associated compressive atelectasis. Compressive atelectasis versus infectious focus in the right base. Extensive breathing artifact makes evaluation of small pulmonary nodules suboptimal. No large mass identified. The heart is normal in size. No significant pericardial effusion. The trachea and proximal airways are clear. MEDIASTINUM: Moderate thickening of the distal esophagus and the GE junction. Upper endoscopy should be considered. Normal caliber aorta and pulmonary arterial trunk. LYMPH NODES: Evaluation of mediastinal lymph nodes is somewhat limited due to lack of intravenous contrast. No bulky mediastinal lymphadenopathy identified. PLEURA: As above. BONES: Unremarkable. OTHER FINDINGS:: None. CT ABDOMEN: LIVER: Extensive hepatic steatosis. No intrahepatic biliary ductal dilatation. Small amount of perihepatic ascites. GALLBLADDER AND BILE DUCTS: Gallbladder not seen. Cholecystectomy clips in the gallbladder fossa. PANCREAS: Amorphous appearance of the pancreatic head with surrounding inflammatory changes. Consistent with pancreatitis. No foci of air identified. SPLEEN: Mildly enlarged spleen. ADRENALS: Mild diffuse thickening of both adrenal glands. KIDNEYS AND URETERS: Both kidneys are symmetric in size. No hydroureteral nephrosis. No echogenic calculi seen. VASCULATURE: No aortic aneurysm. Patency of the vessels not evaluated. STOMACH AND BOWEL: Patient is status post gastric bypass surgery. Thickening of the stomach pouch identified. The gastric jejunal and jejunal-jejunal anastomosis appear intact. Evaluation of bowel is somewhat limited given lack of oral contrast and IV contrast. There is diffuse thickening of the descending colon and the rectum which could be due to underdistention however, underlying inflammation cannot be entirely excluded. Thickened cecum also noted. PERITONEUM: Small amount of free fluid in the peritoneal. LYMPH NODES: Mild reactive lymph nodes at the root of the mesentery identified. Small gastrohepatic ligament lymph nodes also noted. BONES: No acute fracture. OTHER FINDINGS: None. IMPRESSION: Acute pancreatitis with surrounding inflammatory changes without any focal fluid collection. No foci of air identified. Small left-sided pleural effusion with atelectasis and/or pneumonia. Right basilar atelectasis also seen. Extensive hepatic steatosis. Gallbladder not seen. No intrahepatic biliary ductal dilatation. Moderate thickening of the distal esophagus and the gastroesophageal junction. Upper endoscopy recommended. Discussed with LADAN Gordon at approximately 3:30 p.m. on 02/19/2018. Time: [address] RESULTS FINDINGS: VERTEBRAE: No fracture. Normal alignment. No destructive bony lesion. DISCS/SPINAL CANAL/NEURAL FORAMINA: No significant central canal or neural foraminal stenosis. Discs heights are grossly preserved. PARASPINAL SOFT TISSUES: Unremarkable. OTHER FINDINGS: Bilateral mild lymphadenopathy. IMPRESSION: No acute fracture. Pt. evaluated by Dr. Dove. LR bolus x 3 ordered. Case d/w Dr. Johnson and arrangements made for admission. Case d/w Dr. Carver, GI covering for Dr. Kimball, who agrees with care and will see patient tomorrow. Ammonia level 130 - lactulose ordered. Scribe Attestation: Documented by Jorden Ash, acting as a scribe for Evan Kinsey PA-C Provider Scribe Attestation: All medical record entries made by the Scribe were at my direction and personally dictated by me. I have reviewed the chart and agree that the record accurately reflects my personal performance of the history, physical exam, medical decision making, and the department course for this patient. I have also personally directed, reviewed, and agree with the discharge instructions and disposition. Disposition - Clinical Impression Clinical Impression: Acute pancreatitis, Cirrhosis, Alcoholic hepatitis, Alcohol abuse with intoxication, Hyperbilirubinemia - Patient ED Disposition Is Patient to be Admitted: Yes - Disposition Disposition Time: 16:50 Condition: FAIR
[2018-02-19 13:40] LABS: BASO # 0.1 K/uL (0.0-0.2); BASO % 1.2 % (0.0-2.0); EOS # 0.1 K/uL (0.0-0.7); EOS % 0.5 % (0.0-4.0); HEMOGLOBIN 10.2 g/dL (12.0-18.0); LYMPH # 2.3 K/uL (1.0-4.3); MEAN CELL VOLUME 88.4 fl (80.0-94.0); MEAN CORPUSCULAR HEMOGLOBIN 30.5 pg (27.0-31.0); MEAN CORPUSCULAR HGB CONC 34.5 g/dL (33.0-37.0); MEAN PLATELET VOLUME 7.3 fl (7.2-11.7); MONO % 10.1 % (0.0-10.0); NEUT # 6.1 K/uL (1.8-7.0); NEUT % 64.2 % (50.0-75.0); NRBC % 0.2 % (0.0-0.0); RBC 3.34 Mil/uL (4.40-5.90); WHITE BLOOD COUNT 9.5 K/uL (4.8-10.8)
[2018-02-19 13:51] LABS: INR 3.4 (0.9-1.2); PROTHROMBIN TIME 38.9 Seconds (9.8-13.1)
[2018-02-19 13:53] LABS: PARTIAL THROMBOPLASTIN TIME 74.1 Seconds (25.6-37.1)
[2018-02-19 14:01] LABS: ALB/GLOB RATIO 0.5 (1.0-2.1); ALBUMIN 2.5 g/dL (3.5-5.0); CALCIUM 7.3 mg/dL (8.4-10.2)
--- NOTE | 2018-02-19 15:05 | CT ---
PROCEDURE: CT HEAD WITHOUT CONTRAST. HISTORY: possible fall COMPARISON: None available. TECHNIQUE: Axial computed tomography images were obtained through the head/brain without intravenous contrast. Streak artifact limits evaluation. Radiation dose: Total exam DLP = 845.44 mGy-cm. This CT exam was performed using one or more of the following dose reduction techniques: Automated exposure control, adjustment of the mA and/or kV according to patient size, and/or use of iterative reconstruction technique. FINDINGS: HEMORRHAGE: No intracranial hemorrhage. BRAIN: No mass effect or edema. No atrophy or chronic microvascular ischemic changes. VENTRICLES: Unremarkable. No hydrocephalus. CALVARIUM: Unremarkable. PARANASAL SINUSES: Unremarkable as visualized. No significant inflammatory changes. MASTOID AIR CELLS: Unremarkable as visualized. No inflammatory changes. OTHER FINDINGS: None. IMPRESSION: No CT evidence of acute intracranial hemorrhage or acute territorial infarct. Acute infarction may be CT occult within first 24 hours. If a focal deficit persists, consider followup CT or MRI for further evaluation.
[2018-02-19 15:12] LABS: BARBITURATES, UR NEGATIVE (NEGATIVE); BENZODIAZEPINES, UR POSITIVE (NEGATIVE); OPIATES, UR POSITIVE (NEGATIVE); PHENCYCLIDINE, UR NEGATIVE (NEGATIVE)
[2018-02-19 15:23] LABS: SQUAMOUS EPITHIAL 5 /hpf (0-5); URINE AMORPHOUS SEDIMENT RARE /ul (<OCC); URINE BILIRUBIN MODERATE (NEGATIVE); URINE BLOOD MODERATE (NEGATIVE); URINE CLARITY CLOUDY (Clear); URINE COLOR AMBER (YELLOW); URINE GLUCOSE (UA) 50 mg/dL (Normal); URINE LEUKOCYTE ESTERASE NEG Leu/uL (Negative); URINE PROTEIN 30 mg/dL (NEGATIVE)
[2018-02-19] MEDS ORDERED: Lactated Ringer's 1,000 ML IV SCH ×3 (15:30→16:15)
--- NOTE | 2018-02-19 15:44 | CT ---
PROCEDURE: CT Chest and abdomen without contrast HISTORY: ? fall COMPARISON: None. TECHNIQUE: CT scan without intravenous or oral contrast was obtained. Please note that due to lack of intravenous and oral contrast, evaluation of soft tissue structures and bowel is limited. Radiation dose: Total exam DLP = 1501.76 mGy-cm. This CT exam was performed using one or more of the following dose reduction techniques: Automated exposure control, adjustment of the mA and/or kV according to patient size, and/or use of iterative reconstruction technique. FINDINGS: CT CHEST: LUNGS: Small left-sided pleural effusion with associated compressive atelectasis. Compressive atelectasis versus infectious focus in the right base. Extensive breathing artifact makes evaluation of small pulmonary nodules suboptimal. No large mass identified. The heart is normal in size. No significant pericardial effusion. The trachea and proximal airways are clear. MEDIASTINUM: Moderate thickening of the distal esophagus and the GE junction. Upper endoscopy should be considered. Normal caliber aorta and pulmonary arterial trunk. LYMPH NODES: Evaluation of mediastinal lymph nodes is somewhat limited due to lack of intravenous contrast. No bulky mediastinal lymphadenopathy identified. PLEURA: As above. BONES: Unremarkable. OTHER FINDINGS:: None. CT ABDOMEN: LIVER: Extensive hepatic steatosis. No intrahepatic biliary ductal dilatation. Small amount of perihepatic ascites. GALLBLADDER AND BILE DUCTS: Gallbladder not seen. Cholecystectomy clips in the gallbladder fossa. PANCREAS: Amorphous appearance of the pancreatic head with surrounding inflammatory changes. Consistent with pancreatitis. No foci of air identified. SPLEEN: Mildly enlarged spleen. ADRENALS: Mild diffuse thickening of both adrenal glands. KIDNEYS AND URETERS: Both kidneys are symmetric in size. No hydroureteral nephrosis. No echogenic calculi seen. VASCULATURE: No aortic aneurysm. Patency of the vessels not evaluated. STOMACH AND BOWEL: Patient is status post gastric bypass surgery. Thickening of the stomach pouch identified. The gastric jejunal and jejunal-jejunal anastomosis appear intact. Evaluation of bowel is somewhat limited given lack of oral contrast and IV contrast. There is diffuse thickening of the descending colon and the rectum which could be due to underdistention however, underlying inflammation cannot be entirely excluded. Thickened cecum also noted. PERITONEUM: Small amount of free fluid in the peritoneal. LYMPH NODES: Mild reactive lymph nodes at the root of the mesentery identified. Small gastrohepatic ligament lymph nodes also noted. BONES: No acute fracture. OTHER FINDINGS: None. IMPRESSION: Acute pancreatitis with surrounding inflammatory changes without any focal fluid collection. No foci of air identified. Small left-sided pleural effusion with atelectasis and/or pneumonia. Right basilar atelectasis also seen. Extensive hepatic steatosis. Gallbladder not seen. No intrahepatic biliary ductal dilatation. Moderate thickening of the distal esophagus and the gastroesophageal junction. Upper endoscopy recommended. Discussed with LADAN Gordon at approximately 3:30 p.m. on 02/19/2018.
--- NOTE | 2018-02-19 15:48 | CT ---
Date of service: 02/19/2018 PROCEDURE: CT Cervical Spine without contrast HISTORY: ? fall COMPARISON: None available. TECHNIQUE: Axial computed tomography images were obtained of the cervical spine without the use of intravenous contrast. Coronal and sagittal reformatted images were created and reviewed. Radiation dose: Total exam DLP = 705.22 mGy-cm. This CT exam was performed using one or more of the following dose reduction techniques: Automated exposure control, adjustment of the mA and/or kV according to patient size, and/or use of iterative reconstruction technique. FINDINGS: VERTEBRAE: No fracture. Normal alignment. No destructive bony lesion. DISCS/SPINAL CANAL/NEURAL FORAMINA: No significant central canal or neural foraminal stenosis. Discs heights are grossly preserved. PARASPINAL SOFT TISSUES: Unremarkable. OTHER FINDINGS: Bilateral mild lymphadenopathy. IMPRESSION: No acute fracture.
[2018-02-19 17:21] LABS: LIPASE 569 U/L (23-300)
[2018-02-19 22:03] LABS: HDL CHOLESTEROL 8 MG/DL (30-70); LDL CHOLESTEROL 31 mg/dL (0-129)
[2018-02-19] MEDS ORDERED: Sodium Chloride 0.9% 1,000 ML IV SCH (23:30)
[2018-02-20] MEDS: Morphine 4 MG/ML VIAL IVP PRN ×7 (00:05→20:32)
[2018-02-20] MEDS ORDERED: Pneumococcal 23-Valent Vaccine IM ONE (00:42)
[2018-02-20 05:39] LABS: BASO % 0.7 % (0.0-2.0); EOS % 0.1 % (0.0-4.0); HEMOGLOBIN 9.4 g/dL (12.0-18.0); LYMPH # 1.2 K/uL (1.0-4.3); LYMPH % 16.1 % (20.0-40.0); MEAN CORPUSCULAR HEMOGLOBIN 30.5 pg (27.0-31.0); MEAN PLATELET VOLUME 8.3 fl (7.2-11.7); MONO # 0.6 K/uL (0.0-0.8); MONO % 7.4 % (0.0-10.0); NEUT # 5.7 K/uL (1.8-7.0); NEUT % 75.7 % (50.0-75.0); RBC 3.08 Mil/uL (4.40-5.90); WHITE BLOOD COUNT 7.5 K/uL (4.8-10.8)
[2018-02-20 05:47] LABS: INR 3.3 (0.9-1.2); PROTHROMBIN TIME 37.5 Seconds (9.8-13.1)
[2018-02-20 05:48] LABS: PARTIAL THROMBOPLASTIN TIME 77.1 Seconds (25.6-37.1)
[2018-02-20 05:55] LABS: ALB/GLOB RATIO 0.5 (1.0-2.1); ALBUMIN 2.3 g/dL (3.5-5.0); CALCIUM 7.3 mg/dL (8.4-10.2)
[2018-02-20] MEDS ORDERED: Potassium Chl 20 mEq in D5-NS 1,000 ML IV SCH (07:00)
[2018-02-20] MEDS: Lactated Ringer's 1,000 ML IV SCH ×3 (08:00→23:13)
--- NOTE | 2018-02-20 08:20 | CP.PCM.CON ---
<Gregoria Carver - Last Filed: 02/20/18 14:04> History of Present Illness - History of Present Illness History of Present Illness: PGY5 GI Initial Consult Percy Rebollar is a 32 year old male with history of HTN, MDD, BiPolar disorder, Back pain, nephrolithiasis, cholecystitis s/p cholecystectomy 03/2015, Deangelo-en-Y gastric bypass 2012, and Alcohol abuse presenting for detox. He admits to at least a pint daily of whiskey and vodka for the last two years. On present evaluation, patient provides limited history due to being a poor historian. Patient notes a couple episodes of bilious vomitus, dysuria, dark urine, and yellowing of skin, but cannot give a timeline. Admits to brown diarrhea without blood, up to 3 BM a day. Denies fever, chills, sweats, hematemesis, abdominal distension, constipation, melena, hematochezia, unintentional weight loss, skin sores, mouth ulcers, or eye pain. He does not slight abd pain, in the epigastrum. He states that the pain is a 4 out of 10. He notes that the pain has been present for 1 month and same progressively worsened. A CT of the ABd revealed acute pancreatitis, hepatic steatosis, s/p lap aashish. He had an EGD in 09/2017 which revealed altered anatomy due to deangelo-y, but no evidence of esophageal or gastric varicies. He had a CT LIver in 09/2017 which did not reveal any malignancy only hepatic steatosis. He notes going to [facility], but does not recall tx or follow-up Family- denies colon cancer Social- at least a pint daily- vodka/whiskey, denies tobacco or illicit drug use Surgery- cholecystectomy 2014, Deangelo-en-Y 2012 Past Patient History - Past Medical History & Family History Past Medical History?: Yes - Past Social History Smoking Status: Never Smoked - CARDIAC Hx Congestive Heart Failure: No Hx Hypertension: Yes (No Meds) - PULMONARY Hx Pneumonia: Yes (10/2017) Hx Sleep Apnea: Yes (used cpap awhile ago) - NEUROLOGICAL Hx Dizziness: Yes Hx Seizures: Yes (Last 2014) - HEENT Hx HEENT Problems: Yes - RENAL Hx Chronic Kidney Disease: No - ENDOCRINE/METABOLIC Hx Endocrine Disorders: Yes Hx Diabetes Mellitus Type 2: Yes (no meds) - HEMATOLOGICAL/ONCOLOGICAL Hx Anemia: Yes Hx Blood Transfusions: Yes Hx Blood Transfusion Reaction: No Hx Bruising: Yes Hx Cirrhosis: Yes Hx Human Immunodeficiency Virus (HIV): No Other/Comment: Pt has alcohol hepatitis - INTEGUMENTARY Hx Dermatological Problems: No - MUSCULOSKELETAL/RHEUMATOLOGICAL Hx Back Pain: Yes Hx Falls: Yes Hx Rheumatoid Arthritis: Yes - GASTROINTESTINAL Hx Gastrointestinal Disorders: Yes Hx Bowel Surgery: Yes (s/p gastric bypass) Hx Gall Bladder Disease: Yes Hx Nausea: Yes - GENITOURINARY/GYNECOLOGICAL Hx Prostate Problems: No Hx Sexually Transmitted Disorders: No - PSYCHIATRIC Hx Anxiety: Yes Hx Bipolar Disorder: Yes (no meds) Hx Depression: Yes Hx Substance Use: Yes - SURGICAL HISTORY Hx Cholecystectomy: Yes ([facility] 2014) Other/Comment: s/p gastric bypass; gastric band - ANESTHESIA Hx Anesthesia: Yes Hx Anesthesia Reactions: No Hx Malignant Hyperthermia: No Meds Allergies/Adverse Reactions: Allergies Allergy/AdvReac Type Severity Reaction Status Date / Time SHELLFISH Allergy SWELLING Uncoded 02/19/18 11:54 - Medications Medications: Current Medications Sodium Chloride (Sodium Chloride 0.9%) 1,000 mls @ 100 mls/hr IV .Q10H [facility] Stop: 02/20/18 23:29 Last Admin: 02/19/18 23:48 Dose: 100 mls/hr Lactated Ringer's (Lactated Ringer's) 1,000 mls @ 175 mls/hr IV .Q5H43M [facility] Lactulose (Enulose) 20 gm PO BID [facility] Last Admin: 02/20/18 08:05 Dose: 20 gm Lorazepam (Ativan) 1 mg IVP Q4H PRN PRN Reason: Agitation Morphine Sulfate (Morphine) 4 mg IVP Q3H PRN PRN Reason: pain 2-10 Last Admin: 02/20/18 08:07 Dose: 4 mg Pantoprazole Sodium (Protonix Inj) 40 mg IVP Q12H [facility] Last Admin: 02/20/18 00:05 Dose: 40 mg Thiamine HCl (Vitamin B1 Tab) 100 mg PO DAILY [facility] Last Admin: 02/20/18 08:06 Dose: 100 mg Physical Exam - Constitutional Appears: Well, No Acute Distress, Confused - Head Exam Head Exam: ATRAUMATIC, NORMOCEPHALIC - Eye Exam Eye Exam: Scleral icterus - ENT Exam ENT Exam: Mucous Membranes Moist, Normal Exam - Neck Exam Neck exam: Positive for: Normal Inspection - Respiratory Exam Respiratory Exam: Clear to Auscultation Bilateral, NORMAL BREATHING PATTERN. absent: Rales, Rhonchi, Wheezes, Respiratory Distress - Cardiovascular Exam Cardiovascular Exam: REGULAR RHYTHM, +S1, +S2 - GI/Abdominal Exam GI & Abdominal Exam: Normal Bowel Sounds, Soft, Tenderness (epigastric). absent : Firm, Guarding, Hernia, Rigid - Extremities Exam Extremities exam: Negative for: joint swelling, pedal edema - Neurological Exam Neurological exam: Altered, Oriented x3 Additional comments: asterix - Psychiatric Exam Psychiatric exam: Normal Affect, Normal Mood - Skin Skin Exam: Dry, Intact, Warm Additional comments: asterix Results - Vital Signs Recent Vital Signs: Last Vital Signs Temp 97.7 F 02/20/18 05:00 Pulse 91 H 02/20/18 06:45 Resp 22 02/20/18 06:45 BP 106/60 02/20/18 06:45 Pulse Ox 98 02/20/18 06:45 - Labs Result Diagrams: 02/20/18 04:20 02/20/18 04:20 Labs: Laboratory Results - last 24 hr 02/19/18 02/19/18 02/19/18 12:50 12:50 12:50 WBC 9.5 RBC 3.34 L Hgb 10.2 L Hct 29.6 L MCV 88.4 D MCH 30.5 MCHC 34.5 RDW 27.0 H Plt Count 127 L D MPV 7.3 Neut % (Auto) 64.2 Lymph % (Auto) 24.0 [place] % (Auto) 10.1 H Eos % (Auto) 0.5 Baso % (Auto) 1.2 Neut # (Auto) 6.1 Lymph # (Auto) 2.3 [place] # (Auto) 1.0 H Eos # (Auto) 0.1 Baso # (Auto) 0.1 PT 38.9 H INR 3.4 H APTT 74.1 H Sodium 139 Potassium 3.1 L Chloride 99 Carbon Dioxide 24 Anion Gap 19 BUN 20 Creatinine 2.5 H Est GFR ( Amer) 37 Est GFR (Non-Af Amer) 30 POC Glucose (mg/dL) Random Glucose 107 Calcium 7.3 L Total Bilirubin 23.1 H AST 212 H D ALT 43 Alkaline Phosphatase 217 H D Ammonia Lactate Dehydrogenase Total Protein 7.2 Albumin 2.5 L Globulin 4.7 H Albumin/Globulin Ratio 0.5 L Triglycerides Cholesterol LDL Cholesterol Direct HDL Cholesterol Amylase Lipase Vitamin B12 Urine Color Urine Clarity Urine pH Ur Specific [place] Urine Protein Urine Glucose (UA) Urine Ketones Urine Blood Urine Nitrate Urine Bilirubin Urine Urobilinogen Ur Leukocyte Esterase Urine RBC (Auto) Urine Microscopic WBC Ur Squamous Epith Cells Amorphous Sediment Urine Opiates Screen Urine Methadone Screen Ur Barbiturates Screen Ur Phencyclidine Scrn Ur Amphetamines Screen U Benzodiazepines Scrn U Oth Cocaine Metabols U Cannabinoids Screen Alcohol, Quantitative 358 H* Blood Type Antibody Screen BBK History Checked 02/19/18 02/19/18 02/19/18 12:50 14:30 14:30 WBC RBC Hgb Hct MCV MCH MCHC RDW Plt Count MPV Neut % (Auto) Lymph % (Auto) [place] % (Auto) Eos % (Auto) Baso % (Auto) Neut # (Auto) Lymph # (Auto) [place] # (Auto) Eos # (Auto) Baso # (Auto) PT INR APTT Sodium Potassium Chloride Carbon Dioxide Anion Gap BUN Creatinine Est GFR ( Amer) Est GFR (Non-Af Amer) POC Glucose (mg/dL) Random Glucose Calcium Total Bilirubin AST ALT Alkaline Phosphatase Ammonia Lactate Dehydrogenase Total Protein Albumin Globulin Albumin/Globulin Ratio Triglycerides Cholesterol LDL Cholesterol Direct HDL Cholesterol Amylase Lipase Vitamin B12 Urine Color [place] Urine Clarity Cloudy Urine pH 5.0 Ur Specific [place] 1.020 Urine Protein 30 Urine Glucose (UA) 50 Urine Ketones Negative Urine Blood Moderate Urine Nitrate Negative Urine Bilirubin Moderate Urine Urobilinogen 4.0 Ur Leukocyte Esterase Neg Urine RBC (Auto) 9 H Urine Microscopic WBC 24 H Ur Squamous Epith Cells 5 Amorphous Sediment Rare H Urine Opiates Screen Positive H Urine Methadone Screen Negative Ur Barbiturates Screen Negative Ur Phencyclidine Scrn Negative Ur Amphetamines Screen Negative U Benzodiazepines Scrn Positive U Oth Cocaine Metabols Negative U Cannabinoids Screen Negative Alcohol, Quantitative Blood Type A POSITIVE Antibody Screen Negative BBK History Checked Patient has bt 02/19/18 02/19/18 02/19/18 16:50 16:50 21:28 WBC RBC Hgb Hct MCV MCH MCHC RDW Plt Count MPV Neut % (Auto) Lymph % (Auto) [place] % (Auto) Eos % (Auto) Baso % (Auto) Neut # (Auto) Lymph # (Auto) [place] # (Auto) Eos # (Auto) Baso # (Auto) PT INR APTT Sodium Potassium Chloride Carbon Dioxide Anion Gap BUN Creatinine Est GFR ( Amer) Est GFR (Non-Af Amer) POC Glucose (mg/dL) Random Glucose Calcium Total Bilirubin AST ALT Alkaline Phosphatase Ammonia 130 H* Lactate Dehydrogenase 628 H Total Protein Albumin Globulin Albumin/Globulin Ratio Triglycerides 142 Cholesterol 72 LDL Cholesterol Direct 31 HDL Cholesterol 8 L Amylase Lipase 569 H Vitamin B12 Urine Color Urine Clarity Urine pH Ur Specific [place] Urine Protein Urine Glucose (UA) Urine Ketones Urine Blood Urine Nitrate Urine Bilirubin Urine Urobilinogen Ur Leukocyte Esterase Urine RBC (Auto) Urine Microscopic WBC Ur Squamous Epith Cells Amorphous Sediment Urine Opiates Screen Urine Methadone Screen Ur Barbiturates Screen Ur Phencyclidine Scrn Ur Amphetamines Screen U Benzodiazepines Scrn U Oth Cocaine Metabols U Cannabinoids Screen Alcohol, Quantitative Blood Type Antibody Screen BBK History Checked 02/19/18 02/20/18 02/20/18 22:30 04:20 04:20 WBC 7.5 RBC 3.08 L Hgb 9.4 L Hct 27.7 L MCV 90.0 MCH 30.5 MCHC 34.0 RDW 26.0 H Plt Count 100 L D MPV 8.3 Neut % (Auto) 75.7 H Lymph % (Auto) 16.1 L [place] % (Auto) 7.4 Eos % (Auto) 0.1 Baso % (Auto) 0.7 Neut # (Auto) 5.7 Lymph # (Auto) 1.2 [place] # (Auto) 0.6 Eos # (Auto) 0.0 Baso # (Auto) 0.0 PT 37.5 H INR 3.3 H APTT 77.1 H Sodium Potassium Chloride Carbon Dioxide Anion Gap BUN Creatinine Est GFR ( Amer) Est GFR (Non-Af Amer) POC Glucose (mg/dL) 111 H Random Glucose Calcium Total Bilirubin AST ALT Alkaline Phosphatase Ammonia Lactate Dehydrogenase Total Protein Albumin Globulin Albumin/Globulin Ratio Triglycerides Cholesterol LDL Cholesterol Direct HDL Cholesterol Amylase Lipase Vitamin B12 Urine Color Urine Clarity Urine pH Ur Specific [place] Urine Protein Urine Glucose (UA) Urine Ketones Urine Blood Urine Nitrate Urine Bilirubin Urine Urobilinogen Ur Leukocyte Esterase Urine RBC (Auto) Urine Microscopic WBC Ur Squamous Epith Cells Amorphous Sediment Urine Opiates Screen Urine Methadone Screen Ur Barbiturates Screen Ur Phencyclidine Scrn Ur Amphetamines Screen U Benzodiazepines Scrn U Oth Cocaine Metabols U Cannabinoids Screen Alcohol, Quantitative Blood Type Antibody Screen BBK History Checked 02/20/18 02/20/18 02/20/18 04:20 04:20 05:22 WBC RBC Hgb Hct MCV MCH MCHC RDW Plt Count MPV Neut % (Auto) Lymph % (Auto) [place] % (Auto) Eos % (Auto) Baso % (Auto) Neut # (Auto) Lymph # (Auto) [place] # (Auto) Eos # (Auto) Baso # (Auto) PT INR APTT Sodium 137 Potassium 3.4 L Chloride 99 Carbon Dioxide 18 L Anion Gap 23 H BUN 19 Creatinine 2.6 H Est GFR ( Amer) 35 Est GFR (Non-Af Amer) 29 POC Glucose (mg/dL) 86 Random Glucose 83 Calcium 7.3 L Total Bilirubin 23.6 H AST 208 H ALT 49 Alkaline Phosphatase 208 H Ammonia 78 H D Lactate Dehydrogenase Total Protein 7.4 Albumin 2.3 L Globulin 5.0 H Albumin/Globulin Ratio 0.5 L Triglycerides 128 Cholesterol 76 LDL Cholesterol Direct 30 HDL Cholesterol 10 L Amylase 98 Lipase 960 H Vitamin B12 876 Urine Color Urine Clarity Urine pH Ur Specific [place] Urine Protein Urine Glucose (UA) Urine Ketones Urine Blood Urine Nitrate Urine Bilirubin Urine Urobilinogen Ur Leukocyte Esterase Urine RBC (Auto) Urine Microscopic WBC Ur Squamous Epith Cells Amorphous Sediment Urine Opiates Screen Urine Methadone Screen Ur Barbiturates Screen Ur Phencyclidine Scrn Ur Amphetamines Screen U Benzodiazepines Scrn U Oth Cocaine Metabols U Cannabinoids Screen Alcohol, Quantitative Blood Type Antibody Screen BBK History Checked Assessment & Plan - Assessment and Plan (Free Text) Assessment: 32 year old male with h/o Obesity s/p RNY gastric bypass, s/p cholecystectomy, EtOH abuse, Bipolar d/o admitted for alcohol detox. 1. Alcoholic Hepatitis 2. Anemia 3. Alcohol withdrawal 4. Acute pancreatitis likely 2/2 ETOH 5. Elevated Liver enzymes, likely 2/2 alcoholic hepatitis, r/o infectious and autoimmune etiologies Plan: -patient will likely withdraw from etoh, supportive measures -CT triple phase 09/2017: hepatic steatosis -etoh cirrhosis vs hepatitis -advised strict etoh abstinence -may consider course of steroids depending on clinical course -EGD: 09/2017: gastritis, no evidense of esophageal varices -switch to LR at 150ml/hr -start liquid diet -continue lactulose for 2 BM daily -MELD 18: 40 -DF: 146 02/19/18 will send of for infectous and autoimmune serologies -will call [facility], as pt has established care, to get for information about past treatment -will start pentoxifylline 400mg daily (since GFR <30), if okay with [facility] will D/W Dr. Kimball <Reuben Kimball - Last Filed: 02/20/18 14:14> Meds - Medications Medications: Current Medications Sodium Chloride (Sodium Chloride 0.9%) 1,000 mls @ 100 mls/hr IV .Q10H [facility] Stop: 02/20/18 23:29 Last Admin: 02/19/18 23:48 Dose: 100 mls/hr Lactated Ringer's (Lactated Ringer's) 1,000 mls @ 175 mls/hr IV .Q5H43M [facility] Last Admin: 02/20/18 08:00 Dose: 175 mls/hr Lactulose (Enulose) 20 gm PO BID [facility] Last Admin: 02/20/18 08:05 Dose: 20 gm Lorazepam (Ativan) 1 mg IVP Q4H PRN PRN Reason: Agitation Morphine Sulfate (Morphine) 4 mg IVP Q3H PRN PRN Reason: pain 2-10 Last Admin: 02/20/18 11:14 Dose: 4 mg Pantoprazole Sodium (Protonix Inj) 40 mg IVP Q12H [facility] Last Admin: 02/20/18 10:30 Dose: 40 mg Thiamine HCl (Vitamin B1 Tab) 100 mg PO DAILY [facility] Last Admin: 02/20/18 08:06 Dose: 100 mg Results - Vital Signs Recent Vital Signs: Last Vital Signs Temp 98.1 F 02/20/18 12:00 Pulse 104 H 02/20/18 13:00 Resp 25 H 02/20/18 13:00 BP 102/41 L 02/20/18 13:00 Pulse Ox 100 02/20/18 13:00 - Labs Result Diagrams: 02/20/18 04:20 02/20/18 04:20 Labs: Laboratory Results - last 24 hr 02/19/18 02/19/18 02/19/18 12:50 12:50 14:30 WBC RBC Hgb Hct MCV MCH MCHC RDW Plt Count MPV Neut % (Auto) Lymph % (Auto) [place] % (Auto) Eos % (Auto) Baso % (Auto) Neut # (Auto) Lymph # (Auto) [place] # (Auto) Eos # (Auto) Baso # (Auto) PT INR APTT Sodium Potassium Chloride Carbon Dioxide Anion Gap BUN Creatinine Est GFR ( Amer) Est GFR (Non-Af Amer) POC Glucose (mg/dL) Random Glucose Calcium Total Bilirubin AST ALT Alkaline Phosphatase Ammonia Lactate Dehydrogenase Total Protein Albumin Globulin Albumin/Globulin Ratio Triglycerides Cholesterol LDL Cholesterol Direct HDL Cholesterol Amylase Lipase Vitamin B12 Urine Color Urine Clarity Urine pH Ur Specific [place] Urine Protein Urine Glucose (UA) Urine Ketones Urine Blood Urine Nitrate Urine Bilirubin Urine Urobilinogen Ur Leukocyte Esterase Urine RBC (Auto) Urine Microscopic WBC Ur Squamous Epith Cells Amorphous Sediment Urine Opiates Screen Positive H Urine Methadone Screen Negative Ur Barbiturates Screen Negative Ur Phencyclidine Scrn Negative Ur Amphetamines Screen Negative U Benzodiazepines Scrn Positive U Oth Cocaine Metabols Negative U Cannabinoids Screen Negative Alcohol, Quantitative 358 H* Blood Type A POSITIVE Antibody Screen Negative BBK History Checked Patient has bt 02/19/18 02/19/18 02/19/18 14:30 16:50 16:50 WBC RBC Hgb Hct MCV MCH MCHC RDW Plt Count MPV Neut % (Auto) Lymph % (Auto) [place] % (Auto) Eos % (Auto) Baso % (Auto) Neut # (Auto) Lymph # (Auto) [place] # (Auto) Eos # (Auto) Baso # (Auto) PT INR APTT Sodium Potassium Chloride Carbon Dioxide Anion Gap BUN Creatinine Est GFR ( Amer) Est GFR (Non-Af Amer) POC Glucose (mg/dL) Random Glucose Calcium Total Bilirubin AST ALT Alkaline Phosphatase Ammonia 130 H* Lactate Dehydrogenase 628 H Total Protein Albumin Globulin Albumin/Globulin Ratio Triglycerides Cholesterol LDL Cholesterol Direct HDL Cholesterol Amylase Lipase 569 H Vitamin B12 Urine Color [place] Urine Clarity Cloudy Urine pH 5.0 Ur Specific [place] 1.020 Urine Protein 30 Urine Glucose (UA) 50 Urine Ketones Negative Urine Blood Moderate Urine Nitrate Negative Urine Bilirubin Moderate Urine Urobilinogen 4.0 Ur Leukocyte Esterase Neg Urine RBC (Auto) 9 H Urine Microscopic WBC 24 H Ur Squamous Epith Cells 5 Amorphous Sediment Rare H Urine Opiates Screen Urine Methadone Screen Ur Barbiturates Screen Ur Phencyclidine Scrn Ur Amphetamines Screen U Benzodiazepines Scrn U Oth Cocaine Metabols U Cannabinoids Screen Alcohol, Quantitative Blood Type Antibody Screen BBK History Checked 02/19/18 02/19/18 02/20/18 21:28 22:30 04:20 WBC 7.5 RBC 3.08 L Hgb 9.4 L Hct 27.7 L MCV 90.0 MCH 30.5 MCHC 34.0 RDW 26.0 H Plt Count 100 L D MPV 8.3 Neut % (Auto) 75.7 H Lymph % (Auto) 16.1 L [place] % (Auto) 7.4 Eos % (Auto) 0.1 Baso % (Auto) 0.7 Neut # (Auto) 5.7 Lymph # (Auto) 1.2 [place] # (Auto) 0.6 Eos # (Auto) 0.0 Baso # (Auto) 0.0 PT INR APTT Sodium Potassium Chloride Carbon Dioxide Anion Gap BUN Creatinine Est GFR ( Amer) Est GFR (Non-Af Amer) POC Glucose (mg/dL) 111 H Random Glucose Calcium Total Bilirubin AST ALT Alkaline Phosphatase Ammonia Lactate Dehydrogenase Total Protein Albumin Globulin Albumin/Globulin Ratio Triglycerides 142 Cholesterol 72 LDL Cholesterol Direct 31 HDL Cholesterol 8 L Amylase Lipase Vitamin B12 Urine Color Urine Clarity Urine pH Ur Specific [place] Urine Protein Urine Glucose (UA) Urine Ketones Urine Blood Urine Nitrate Urine Bilirubin Urine Urobilinogen Ur Leukocyte Esterase Urine RBC (Auto) Urine Microscopic WBC Ur Squamous Epith Cells Amorphous Sediment Urine Opiates Screen Urine Methadone Screen Ur Barbiturates Screen Ur Phencyclidine Scrn Ur Amphetamines Screen U Benzodiazepines Scrn U Oth Cocaine Metabols U Cannabinoids Screen Alcohol, Quantitative Blood Type Antibody Screen BBK History Checked 02/20/18 02/20/18 02/20/18 04:20 04:20 04:20 WBC RBC Hgb Hct MCV MCH MCHC RDW Plt Count MPV Neut % (Auto) Lymph % (Auto) [place] % (Auto) Eos % (Auto) Baso % (Auto) Neut # (Auto) Lymph # (Auto) [place] # (Auto) Eos # (Auto) Baso # (Auto) PT 37.5 H INR 3.3 H APTT 77.1 H Sodium 137 Potassium 3.4 L Chloride 99 Carbon Dioxide 18 L Anion Gap 23 H BUN 19 Creatinine 2.6 H Est GFR ( Amer) 35 Est GFR (Non-Af Amer) 29 POC Glucose (mg/dL) Random Glucose 83 Calcium 7.3 L Total Bilirubin 23.6 H AST 208 H ALT 49 Alkaline Phosphatase 208 H Ammonia 78 H D Lactate Dehydrogenase Total Protein 7.4 Albumin 2.3 L Globulin 5.0 H Albumin/Globulin Ratio 0.5 L Triglycerides 128 Cholesterol 76 LDL Cholesterol Direct 30 HDL Cholesterol 10 L Amylase 98 Lipase 960 H Vitamin B12 876 Urine Color Urine Clarity Urine pH Ur Specific [place] Urine Protein Urine Glucose (UA) Urine Ketones Urine Blood Urine Nitrate Urine Bilirubin Urine Urobilinogen Ur Leukocyte Esterase Urine RBC (Auto) Urine Microscopic WBC Ur Squamous Epith Cells Amorphous Sediment Urine Opiates Screen Urine Methadone Screen Ur Barbiturates Screen Ur Phencyclidine Scrn Ur Amphetamines Screen U Benzodiazepines Scrn U Oth Cocaine Metabols U Cannabinoids Screen Alcohol, Quantitative Blood Type Antibody Screen BBK History Checked 02/20/18 02/20/18 05:22 11:14 WBC RBC Hgb Hct MCV MCH MCHC RDW Plt Count MPV Neut % (Auto) Lymph % (Auto) [place] % (Auto) Eos % (Auto) Baso % (Auto) Neut # (Auto) Lymph # (Auto) [place] # (Auto) Eos # (Auto) Baso # (Auto) PT INR APTT Sodium Potassium Chloride Carbon Dioxide Anion Gap BUN Creatinine Est GFR ( Amer) Est GFR (Non-Af Amer) POC Glucose (mg/dL) 86 81 Random Glucose Calcium Total Bilirubin AST ALT Alkaline Phosphatase Ammonia Lactate Dehydrogenase Total Protein Albumin Globulin Albumin/Globulin Ratio Triglycerides Cholesterol LDL Cholesterol Direct HDL Cholesterol Amylase Lipase Vitamin B12 Urine Color Urine Clarity Urine pH Ur Specific [place] Urine Protein Urine Glucose (UA) Urine Ketones Urine Blood Urine Nitrate Urine Bilirubin Urine Urobilinogen Ur Leukocyte Esterase Urine RBC (Auto) Urine Microscopic WBC Ur Squamous Epith Cells Amorphous Sediment Urine Opiates Screen Urine Methadone Screen Ur Barbiturates Screen Ur Phencyclidine Scrn Ur Amphetamines Screen U Benzodiazepines Scrn U Oth Cocaine Metabols U Cannabinoids Screen Alcohol, Quantitative Blood Type Antibody Screen BBK History Checked Attending/Attestation - Attestation I have personally seen and examined this patient.: Yes I have fully participated in the care of the patient.: Yes I have reviewed all pertinent clinical information: Yes Notes (Text): 02/20/18 14:07 Patient seen and examined with GI fellow. This is a 32 year old male with history of HTN, MDD, BiPolar disorder, Back pain, nephrolithiasis, cholecystitis s/p cholecystectomy 03/2015, Deangelo-en-Y gastric bypass 2012, and Alcohol abuse presenting for detox. Acute on chronic alcoholic liver disease with hepatic steatosis and hepatosplenomegaly. Last admission he was transferred to [place] for alc hep trail. Will try to contact [facility] to get further details. Continue supportive care with pain control and anti-emetics. Hepatitis panel negative, autoimmune workup negative. Will start pentoxyfilline for azotemia as he was recently given steroids and he is actively drinking.
--- NOTE | 2018-02-20 11:48 | CP.PCM.HP ---
History of Present Illness - History of Present Illness History of Present Illness: CC: Alcohol Intoxication. 32 y/o M, Multiple chronic medical conditions including long Hx of Alcohol dependance/opiates abuse, Liver Cirrhosis, Pantocytopenia, s/p Gastric bypass, R/A, JOHN. Pt called EMS on 02/19/18 asking for help to be seen in ER [facility], [place] for alcohol detox, episode associated to generalized jaundice/ yellow skin, abdominal pain, intensity 7:10, Pt consumed 2 Lt of alcohol in AM DOA, and has no control/stop the daily drinking. Also c/o of abdominal and neck and chronic back pain. Worsening symptoms: Unable to void, Garland Cath was placed with 300 of very dark orange urine color. Obesity BMI: 35.9. Aggravated factor: Non in compliance with CPAP and BP medicine. Pt denied: Fever, chills, fall, trauma, CP, palpitations, syncope, numbness, SOB , cough, n/v/d, dysuria, sick contact, travel out of [place]. CXR: Hazy opacity in the left lung bases. Chest/abd/Pelv CT shows: Acute Pancreatitis, extensive hepatic steatosis, moderate thickening of the distal esophagus and gastroesophageal junction. Small L side pleural effusion with atelectasis/PNA. Head CT: No infarct or hemorrhage. Present on Admission - Present on Admission Any Indicators Present on Admission: No Review of Systems - Constitutional Constitutional: Weakness - EENT Eyes: Requires Corrective Lenses Ears: Other (negative) Nose/Mouth/Throat: Neck Pain - Cardiovascular Cardiovascular: Rapid Heart Rate - Respiratory Respiratory: Other (negative) - Gastrointestinal Gastrointestinal: Abdominal Pain (epigastric) - Genitourinary Genitourinary: Other (no voiding) - Musculoskeletal Musculoskeletal: Back Pain, Neck Pain - Integumentary Integumentary: Other (Generalized multiple bruise. Pt states from fall and playing with his dog.) - Neurological Neurological: Tremor (mild 2nd to alcohol detox.) - Psychiatric Psychiatric: Anxiety, Depression. absent: Hallucinations, Homicidal Ideation, Suicidal Ideation - Endocrine Endocrine: Other (obese) - Hematologic/Lymphatic Hematologic: Other (chronic anemia) Past Patient History - Past Medical History & Family History Past Medical History?: Yes Pertinent Family History: Unknown - Past Social History Smoking Status: Never Smoked Alcohol: Other (abuse) Drugs: Opiates Home Situation {Lives}: Alone - CARDIAC Hx Cardiac Disorders: Yes Hx Congestive Heart Failure: No Hx Hypertension: Yes (No Meds) - PULMONARY Hx Respiratory Disorders: Yes Hx Pneumonia: Yes (10/2017) Hx Sleep Apnea: Yes (used cpap a while ago) - NEUROLOGICAL Hx Neurological Disorder: Yes Hx Dizziness: Yes Hx Seizures: Yes (Last 2014) - HEENT Hx HEENT Problems: Yes (Use eyeglasses, low vision) - RENAL Hx Chronic Kidney Disease: No - ENDOCRINE/METABOLIC Hx Endocrine Disorders: Yes Hx Diabetes Mellitus Type 2: Yes (no meds) - HEMATOLOGICAL/ONCOLOGICAL Hx Blood Disorders: Yes Hx Anemia: Yes Hx Blood Transfusions: Yes Hx Blood Transfusion Reaction: No Hx Bruising: Yes Hx Cirrhosis: Yes Hx Human Immunodeficiency Virus (HIV): No Other/Comment: Pt has alcohol hepatitis - INTEGUMENTARY Hx Dermatological Problems: No - MUSCULOSKELETAL/RHEUMATOLOGICAL Hx Musculoskeletal Disorders: Yes Hx Back Pain: Yes Hx Falls: Yes Hx Rheumatoid Arthritis: Yes - GASTROINTESTINAL Hx Gastrointestinal Disorders: Yes Hx Bowel Surgery: Yes (s/p gastric bypass) Hx Gall Bladder Disease: Yes Hx Nausea: Yes - GENITOURINARY/GYNECOLOGICAL Hx Genitourinary Disorders: No Hx Prostate Problems: No Hx Sexually Transmitted Disorders: No - PSYCHIATRIC Hx Psychophysiologic Disorder: Yes Hx Anxiety: Yes Hx Bipolar Disorder: Yes (no meds) Hx Depression: Yes Hx Substance Use: Yes - SURGICAL HISTORY Hx Surgeries: Yes Hx Cholecystectomy: Yes ([facility] 2014) Other/Comment: s/p gastric bypass; gastric band - ANESTHESIA Hx Anesthesia: Yes Hx Anesthesia Reactions: No Hx Malignant Hyperthermia: No Meds Allergies/Adverse Reactions: Allergies Allergy/AdvReac Type Severity Reaction Status Date / Time SHELLFISH Allergy SWELLING Uncoded 02/19/18 11:54 Physical Exam - Constitutional Appears: No Acute Distress, Confused, Other (Yellow and jaundiced.) - Head Exam Head Exam: NORMAL INSPECTION - Eye Exam Eye Exam: PERRL, Scleral icterus - ENT Exam ENT Exam: Mucous Membranes Moist - Neck Exam Neck exam: Positive for: Normal Inspection - Respiratory Exam Respiratory Exam: Clear to Auscultation Bilateral - Cardiovascular Exam Cardiovascular Exam: REGULAR RHYTHM - GI/Abdominal Exam GI & Abdominal Exam: Normal Bowel Sounds, Soft, Tenderness (epigastric) Additional comments: Large abdomen - Exam Additional comments: Garland Cath - Extremities Exam Extremities exam: Positive for: normal inspection - Back Exam Back exam: NORMAL INSPECTION - Neurological Exam Neurological exam: Alert, Oriented x3 Additional comments: no focal motor/sensory deficit - Psychiatric Exam Psychiatric exam: Anxious - Skin Skin Exam: Warm Additional comments: Generalized multiple bruise, states from fall and playing with his dog. Generalized jaundice/ yellow skin. Results - Vital Signs Recent Vital Signs: Last Vital Signs Temp 97.5 F L 02/20/18 08:00 Pulse 99 H 02/20/18 09:00 Resp 32 H 02/20/18 09:00 BP 110/51 L 02/20/18 09:00 Pulse Ox 100 02/20/18 09:00 reviewed Katina - Labs Result Diagrams: 02/21/18 04:20 02/20/18 04:20 Labs: Laboratory Results - last 24 hr 02/19/18 02/19/18 02/19/18 12:50 12:50 12:50 WBC 9.5 RBC 3.34 L Hgb 10.2 L Hct 29.6 L MCV 88.4 D MCH 30.5 MCHC 34.5 RDW 27.0 H Plt Count 127 L D MPV 7.3 Neut % (Auto) 64.2 Lymph % (Auto) 24.0 [place] % (Auto) 10.1 H Eos % (Auto) 0.5 Baso % (Auto) 1.2 Neut # (Auto) 6.1 Lymph # (Auto) 2.3 [place] # (Auto) 1.0 H Eos # (Auto) 0.1 Baso # (Auto) 0.1 PT 38.9 H INR 3.4 H APTT 74.1 H Sodium 139 Potassium 3.1 L Chloride 99 Carbon Dioxide 24 Anion Gap 19 BUN 20 Creatinine 2.5 H Est GFR ( Amer) 37 Est GFR (Non-Af Amer) 30 POC Glucose (mg/dL) Random Glucose 107 Calcium 7.3 L Total Bilirubin 23.1 H AST 212 H D ALT 43 Alkaline Phosphatase 217 H D Ammonia Lactate Dehydrogenase Total Protein 7.2 Albumin 2.5 L Globulin 4.7 H Albumin/Globulin Ratio 0.5 L Triglycerides Cholesterol LDL Cholesterol Direct HDL Cholesterol Amylase Lipase Vitamin B12 Urine Color Urine Clarity Urine pH Ur Specific [place] Urine Protein Urine Glucose (UA) Urine Ketones Urine Blood Urine Nitrate Urine Bilirubin Urine Urobilinogen Ur Leukocyte Esterase Urine RBC (Auto) Urine Microscopic WBC Ur Squamous Epith Cells Amorphous Sediment Urine Opiates Screen Urine Methadone Screen Ur Barbiturates Screen Ur Phencyclidine Scrn Ur Amphetamines Screen U Benzodiazepines Scrn U Oth Cocaine Metabols U Cannabinoids Screen Alcohol, Quantitative 358 H* Blood Type Antibody Screen BBK History Checked 02/19/18 02/19/18 02/19/18 12:50 14:30 14:30 WBC RBC Hgb Hct MCV MCH MCHC RDW Plt Count MPV Neut % (Auto) Lymph % (Auto) [place] % (Auto) Eos % (Auto) Baso % (Auto) Neut # (Auto) Lymph # (Auto) [place] # (Auto) Eos # (Auto) Baso # (Auto) PT INR APTT Sodium Potassium Chloride Carbon Dioxide Anion Gap BUN Creatinine Est GFR ( Amer) Est GFR (Non-Af Amer) POC Glucose (mg/dL) Random Glucose Calcium Total Bilirubin AST ALT Alkaline Phosphatase Ammonia Lactate Dehydrogenase Total Protein Albumin Globulin Albumin/Globulin Ratio Triglycerides Cholesterol LDL Cholesterol Direct HDL Cholesterol Amylase Lipase Vitamin B12 Urine Color Heidy Urine Clarity Cloudy Urine pH 5.0 Ur Specific [place] 1.020 Urine Protein 30 Urine Glucose (UA) 50 Urine Ketones Negative Urine Blood Moderate Urine Nitrate Negative Urine Bilirubin Moderate Urine Urobilinogen 4.0 Ur Leukocyte Esterase Neg Urine RBC (Auto) 9 H Urine Microscopic WBC 24 H Ur Squamous Epith Cells 5 Amorphous Sediment Rare H Urine Opiates Screen Positive H Urine Methadone Screen Negative Ur Barbiturates Screen Negative Ur Phencyclidine Scrn Negative Ur Amphetamines Screen Negative U Benzodiazepines Scrn Positive U Oth Cocaine Metabols Negative U Cannabinoids Screen Negative Alcohol, Quantitative Blood Type A POSITIVE Antibody Screen Negative BBK History Checked Patient has bt 02/19/18 02/19/18 02/19/18 16:50 16:50 21:28 WBC RBC Hgb Hct MCV MCH MCHC RDW Plt Count MPV Neut % (Auto) Lymph % (Auto) [place] % (Auto) Eos % (Auto) Baso % (Auto) Neut # (Auto) Lymph # (Auto) [place] # (Auto) Eos # (Auto) Baso # (Auto) PT INR APTT Sodium Potassium Chloride Carbon Dioxide Anion Gap BUN Creatinine Est GFR ( Amer) Est GFR (Non-Af Amer) POC Glucose (mg/dL) Random Glucose Calcium Total Bilirubin AST ALT Alkaline Phosphatase Ammonia 130 H* Lactate Dehydrogenase 628 H Total Protein Albumin Globulin Albumin/Globulin Ratio Triglycerides 142 Cholesterol 72 LDL Cholesterol Direct 31 HDL Cholesterol 8 L Amylase Lipase 569 H Vitamin B12 Urine Color Urine Clarity Urine pH Ur Specific [place] Urine Protein Urine Glucose (UA) Urine Ketones Urine Blood Urine Nitrate Urine Bilirubin Urine Urobilinogen Ur Leukocyte Esterase Urine RBC (Auto) Urine Microscopic WBC Ur Squamous Epith Cells Amorphous Sediment Urine Opiates Screen Urine Methadone Screen Ur Barbiturates Screen Ur Phencyclidine Scrn Ur Amphetamines Screen U Benzodiazepines Scrn U Oth Cocaine Metabols U Cannabinoids Screen Alcohol, Quantitative Blood Type Antibody Screen BBK History Checked 02/19/18 02/20/18 02/20/18 22:30 04:20 04:20 WBC 7.5 RBC 3.08 L Hgb 9.4 L Hct 27.7 L MCV 90.0 MCH 30.5 MCHC 34.0 RDW 26.0 H Plt Count 100 L D MPV 8.3 Neut % (Auto) 75.7 H Lymph % (Auto) 16.1 L [place] % (Auto) 7.4 Eos % (Auto) 0.1 Baso % (Auto) 0.7 Neut # (Auto) 5.7 Lymph # (Auto) 1.2 [place] # (Auto) 0.6 Eos # (Auto) 0.0 Baso # (Auto) 0.0 PT 37.5 H INR 3.3 H APTT 77.1 H Sodium Potassium Chloride Carbon Dioxide Anion Gap BUN Creatinine Est GFR ( Amer) Est GFR (Non-Af Amer) POC Glucose (mg/dL) 111 H Random Glucose Calcium Total Bilirubin AST ALT Alkaline Phosphatase Ammonia Lactate Dehydrogenase Total Protein Albumin Globulin Albumin/Globulin Ratio Triglycerides Cholesterol LDL Cholesterol Direct HDL Cholesterol Amylase Lipase Vitamin B12 Urine Color Urine Clarity Urine pH Ur Specific [place] Urine Protein Urine Glucose (UA) Urine Ketones Urine Blood Urine Nitrate Urine Bilirubin Urine Urobilinogen Ur Leukocyte Esterase Urine RBC (Auto) Urine Microscopic WBC Ur Squamous Epith Cells Amorphous Sediment Urine Opiates Screen Urine Methadone Screen Ur Barbiturates Screen Ur Phencyclidine Scrn Ur Amphetamines Screen U Benzodiazepines Scrn U Oth Cocaine Metabols U Cannabinoids Screen Alcohol, Quantitative Blood Type Antibody Screen BBK History Checked 02/20/18 02/20/18 02/20/18 04:20 04:20 05:22 WBC RBC Hgb Hct MCV MCH MCHC RDW Plt Count MPV Neut % (Auto) Lymph % (Auto) [place] % (Auto) Eos % (Auto) Baso % (Auto) Neut # (Auto) Lymph # (Auto) [place] # (Auto) Eos # (Auto) Baso # (Auto) PT INR APTT Sodium 137 Potassium 3.4 L Chloride 99 Carbon Dioxide 18 L Anion Gap 23 H BUN 19 Creatinine 2.6 H Est GFR ( Amer) 35 Est GFR (Non-Af Amer) 29 POC Glucose (mg/dL) 86 Random Glucose 83 Calcium 7.3 L Total Bilirubin 23.6 H AST 208 H ALT 49 Alkaline Phosphatase 208 H Ammonia 78 H D Lactate Dehydrogenase Total Protein 7.4 Albumin 2.3 L Globulin 5.0 H Albumin/Globulin Ratio 0.5 L Triglycerides 128 Cholesterol 76 LDL Cholesterol Direct 30 HDL Cholesterol 10 L Amylase 98 Lipase 960 H Vitamin B12 876 Urine Color Urine Clarity Urine pH Ur Specific [place] Urine Protein Urine Glucose (UA) Urine Ketones Urine Blood Urine Nitrate Urine Bilirubin Urine Urobilinogen Ur Leukocyte Esterase Urine RBC (Auto) Urine Microscopic WBC Ur Squamous Epith Cells Amorphous Sediment Urine Opiates Screen Urine Methadone Screen Ur Barbiturates Screen Ur Phencyclidine Scrn Ur Amphetamines Screen U Benzodiazepines Scrn U Oth Cocaine Metabols U Cannabinoids Screen Alcohol, Quantitative Blood Type Antibody Screen BBK History Checked reviewed J.P. - Imaging and Cardiology Chest x-ray Status: Report reviewed by me (IreneP.) CT scan - abdomen Status: Report reviewed by me (JNathalyP.) CT scan - pelvis Status: Report reviewed by me (J.P.) CT scan - head Status: Report reviewed by me (J.P.) CT scan - chest Status: Report reviewed by me (J.P.) Additional comment: Cervical Spine CT Reviewed J.P. Assessment & Plan (1) Acute pancreatitis Status: Acute Priority: High (2) Withdrawal symptoms, drug or narcotic Status: Acute (3) Alcohol abuse with intoxication Status: Acute Priority: High (4) Alcoholic hepatitis Status: Acute Priority: High (5) Hyperbilirubinemia Status: Acute Priority: High (6) Abdominal pain Status: Acute Priority: High (7) Jaundice Status: Acute (8) Anemia Status: Acute (9) Opiate dependence Status: Chronic Priority: Medium - Assessment and Plan (Free Text) Plan: Monitor BP, F/U EKG, MRSA Screen , Liquid diet, Ativan, Morphine, Protonix, Lactulose and rest of Tx. PT eval, GI consult appreciated. - Date & Time Date: 02/20/18 Time: 08:30
[2018-02-20 21:27] LABS: HEPATITIS A IGM NEGATIVE (NEGATIVE); HEPATITIS B CORE AB NEGATIVE (NEGATIVE); HEPATITIS B SURFACE AG Negative (NEGATIVE)
[2018-02-20 21:37] LABS: HEPATITIS C ANTIBODY NEGATIVE (NEGATIVE)
[2018-02-20] MEDS ORDERED: HYDROmorphone 1 mg/ml ISec IVP ONE (23:30)
[2018-02-21] MEDS: Lactated Ringer's 1,000 ML IV SCH ×4 (03:11→16:53)
[2018-02-21 06:04] LABS: HEMOGLOBIN 8.8 g/dL (12.0-18.0); MEAN CELL VOLUME 90.2 fl (80.0-94.0); MEAN CORPUSCULAR HGB CONC 33.3 g/dL (33.0-37.0); RBC 2.94 Mil/uL (4.40-5.90); RED CELL DISTRIBUTION WIDTH 25.7 % (11.5-14.5); WHITE BLOOD COUNT 7.9 K/uL (4.8-10.8)
[2018-02-21 08:04] LABS: ALB/GLOB RATIO 0.5 (1.0-2.1); ALBUMIN 2.2 g/dL (3.5-5.0); CALCIUM 7.4 mg/dL (8.4-10.2)
[2018-02-21 09:10] LABS: INR 4.4 (0.9-1.2)
--- NOTE | 2018-02-21 10:39 | RAD ---
Date of service: 02/21/2018 HISTORY: SOB COMPARISON: 02/19/2018 FINDINGS: LUNGS: No active pulmonary disease. PLEURA: No significant pleural effusion identified, no pneumothorax apparent. CARDIOVASCULAR: Cardiomegaly top-normal pulmonary vasculature -less now than before OSSEOUS STRUCTURES: No significant abnormalities. VISUALIZED UPPER ABDOMEN: Normal. OTHER FINDINGS: None. IMPRESSION: Cardiomegaly. No interval pathology noted
--- NOTE | 2018-02-21 11:01 | CP.PCM.PN ---
<Gregoria Carver - Last Filed: 02/21/18 11:02> Subjective - Date & Time of Evaluation Date of Evaluation: 02/21/18 Time of Evaluation: 08:00 - Subjective Subjective: PGY5 GI follow-up Pt seen and examined bedside +Abd pain in the epigastrum cannot tolerate PO diet +nausea, denies any vomiting ROS; 12 point ROS conducted, neg other than above Objective - Vital Signs/Intake and Output Vital Signs (last 24 hours): Temp Pulse Resp BP Pulse Ox 98.8 F 109 H 24 113/57 L 98 02/21/18 08:03 02/21/18 09:00 02/21/18 09:00 02/21/18 09:00 02/21/18 09:00 Intake and Output: 02/21/18 02/21/18 06:59 18:59 Intake Total 1715 350 Balance 1715 350 - Medications Medications: Current Medications Lactated Ringer's (Lactated Ringer's) 1,000 mls @ 175 mls/hr IV .Q5H43M [facility] Last Admin: 02/21/18 06:43 Dose: 175 mls/hr Lactulose (Enulose) 20 gm PO BID [facility] Last Admin: 02/21/18 08:12 Dose: 20 gm Lorazepam (Ativan) 1 mg IVP Q4H PRN PRN Reason: Agitation Last Admin: 02/20/18 22:51 Dose: 1 mg Morphine Sulfate (Morphine) 4 mg IVP Q3H PRN PRN Reason: pain 2-10 Last Admin: 02/21/18 09:38 Dose: 4 mg Pentoxifylline (Pentoxil) 400 mg PO DAILY [facility] Last Admin: 02/21/18 08:12 Dose: 400 mg Thiamine HCl (Vitamin B1 Tab) 100 mg PO DAILY [facility] Last Admin: 02/21/18 08:12 Dose: 100 mg - Labs Labs: 02/21/18 04:20 02/21/18 04:20 PT 50.0 Seconds (9.8-13.1) H* D 02/21/18 08:25 INR 4.4 (0.9-1.2) H D 02/21/18 08:25 APTT 77.1 Seconds (25.6-37.1) H 02/20/18 04:20 - Constitutional Appears: No Acute Distress, Confused - Head Exam Head Exam: NORMOCEPHALIC - Eye Exam Eye Exam: Scleral icterus - ENT Exam ENT Exam: Mucous Membranes Moist, TM's Normal Bilaterally - Neck Exam Neck Exam: Normal Inspection - Respiratory Exam Respiratory Exam: Clear to Ausculation Bilateral, NORMAL BREATHING PATTERN. absent: Rales, Rhonchi, Wheezes, Respiratory Distress - Cardiovascular Exam Cardiovascular Exam: REGULAR RHYTHM, +S1, +S2 - GI/Abdominal Exam GI & Abdominal Exam: Soft, Normal Bowel Sounds. absent: Firm, Guarding, Rigid, Tenderness, Organomegaly, Rebound - Extremities Exam Extremities Exam: absent: Joint Swelling, Pedal Edema - Neurological Exam Neurological Exam: Alert, Awake, Oriented x3 - Psychiatric Exam Psychiatric exam: Normal Affect, Normal Mood - Skin Skin Exam: Dry, Intact, Warm Additional comments: jaundiced Assessment and Plan - Assessment and Plan (Free Text) Assessment: 32 year old male with h/o Obesity s/p RNY gastric bypass, s/p cholecystectomy, EtOH abuse, Bipolar d/o admitted for alcohol detox. 1. Alcoholic Hepatitis 2. Anemia 3. Alcohol withdrawal 4. Acute pancreatitis likely 2/2 ETOH 5. Elevated Liver enzymes, likely 2/2 alcoholic hepatitis, r/o infectious and autoimmune etiologies Plan: -patient will likely withdraw from etoh, supportive measures -CT triple phase 09/2017: hepatic steatosis -etoh cirrhosis vs hepatitis -advised strict etoh abstinence -EGD: 09/2017: gastritis, no evidense of esophageal varices -will increase fluids after CXR, to r/o effusions, to 250ml/hr -NPO for now, due to abd pain -continue lactulose for 2 BM daily -MELD 02/19/18: 40, waiting on todays INR to recalculate -DF: 146 02/19/18 -accepted at [place], waiting for bed -will increase pentoxifylline to 400mg TID D/W Dr. Kimball <Reuben Kimball - Last Filed: 02/21/18 14:19> Objective - Vital Signs/Intake and Output Vital Signs (last 24 hours): Temp Pulse Resp BP Pulse Ox 98.4 F 95 H 43 H 132/69 96 02/21/18 12:08 02/21/18 12:08 02/21/18 12:08 02/21/18 12:08 02/21/18 12:08 Intake and Output: 02/21/18 02/21/18 06:59 18:59 Intake Total 1715 350 Balance 1715 350 - Medications Medications: Current Medications Lactated Ringer's (Lactated Ringer's) 1,000 mls @ 250 mls/hr IV .Q4H [facility] Last Admin: 02/21/18 13:05 Dose: 250 mls/hr Lactulose (Enulose) 20 gm PO BID [facility] Last Admin: 02/21/18 08:12 Dose: 20 gm Lorazepam (Ativan) 1 mg IVP Q4H PRN PRN Reason: Agitation Last Admin: 02/20/18 22:51 Dose: 1 mg Morphine Sulfate (Morphine) 4 mg IVP Q3H PRN PRN Reason: pain 2-10 Last Admin: 02/21/18 12:47 Dose: 4 mg Pentoxifylline (Pentoxil) 400 mg PO TID [facility] Last Admin: 02/21/18 13:44 Dose: 400 mg Thiamine HCl (Vitamin B1 Tab) 100 mg PO DAILY [facility] Last Admin: 02/21/18 08:12 Dose: 100 mg - Labs Labs: 02/21/18 04:20 02/21/18 04:20 PT 50.0 Seconds (9.8-13.1) H* D 02/21/18 08:25 INR 4.4 (0.9-1.2) H D 02/21/18 08:25 APTT 77.1 Seconds (25.6-37.1) H 02/20/18 04:20 Attending/Attestation - Attestation I have personally seen and examined this patient.: Yes I have fully participated in the care of the patient.: Yes I have reviewed all pertinent clinical information, including history, physical exam and plan: Yes Notes (Text): 02/21/18 14:17 Patient seen and examined with GI fellow. This is a 32 year old male with history of HTN, MDD, BiPolar disorder, Back pain, nephrolithiasis, cholecystitis s/p cholecystectomy 03/2015, Alvin-en-Y gastric bypass 2012, and Alcohol abuse presenting for detox. Acute on chronic alcoholic liver disease with hepatic steatosis and hepatosplenomegaly and acute pancreatitis. Last admission he was transferred to [place] for alcoholic hepatitis trail and was discharged on tapering doses of steroids. He is still abusing alcohol on steroids. Yesterday we spoke to [facility] and facilitated transfer. NNPO. CXR with no pleural effusion. Continue supportive care with pain control and anti- emetics. Hepatitis panel negative, autoimmune workup negative. Continue pentoxyfilline for azotemia as he was recently given steroids and he is actively drinking.
[2018-02-21] MEDS ORDERED: Potassium Chloride 20 mEq ER Tab PO ONE (13:00)
[2018-02-21] MEDS ORDERED: Albumin Human 25% (12.5 gm/50 ml) IV ONE (17:45)
--- NOTE | 2018-02-21 17:56 | CP.PCM.PN ---
Subjective - Date & Time of Evaluation Date of Evaluation: 02/21/18 Time of Evaluation: 10:50 - Subjective Subjective: F/U Acute Pancreatitis. C/O epigastric pain and nausea Objective - Vital Signs/Intake and Output Vital Signs (last 24 hours): Temp Pulse Resp BP Pulse Ox 98.0 F 105 H 21 121/70 93 L 02/21/18 16:00 02/21/18 17:00 02/21/18 17:00 02/21/18 17:00 02/21/18 17:00 Intake and Output: 02/21/18 02/21/18 06:59 18:59 Intake Total 1715 350 Balance 1715 350 - Medications Medications: Current Medications Lactated Ringer's (Lactated Ringer's) 1,000 mls @ 250 mls/hr IV .Q4H [facility] Last Admin: 02/21/18 16:53 Dose: 250 mls/hr Lactulose (Enulose) 20 gm PO BID [facility] Last Admin: 02/21/18 16:53 Dose: 20 gm Lorazepam (Ativan) 1 mg IVP Q4H PRN PRN Reason: Agitation Last Admin: 02/20/18 22:51 Dose: 1 mg Morphine Sulfate (Morphine) 4 mg IVP Q3H PRN PRN Reason: pain 2-10 Last Admin: 02/21/18 15:48 Dose: 4 mg Pentoxifylline (Pentoxil) 400 mg PO TID [facility] Last Admin: 02/21/18 16:53 Dose: 400 mg Thiamine HCl (Vitamin B1 Tab) 100 mg PO DAILY [facility] Last Admin: 02/21/18 08:12 Dose: 100 mg - Labs Labs: 02/21/18 04:20 02/21/18 04:20 PT 50.0 Seconds (9.8-13.1) H* D 02/21/18 08:25 INR 4.4 (0.9-1.2) H D 02/21/18 08:25 APTT 77.1 Seconds (25.6-37.1) H 02/20/18 04:20 - Constitutional Appears: No Acute Distress - Head Exam Head Exam: NORMAL INSPECTION - Eye Exam Eye Exam: PERRL, Scleral icterus - ENT Exam ENT Exam: Mucous Membranes Moist - Neck Exam Neck Exam: Normal Inspection - Respiratory Exam Respiratory Exam: Clear to Ausculation Bilateral - Cardiovascular Exam Cardiovascular Exam: REGULAR RHYTHM - GI/Abdominal Exam GI & Abdominal Exam: Soft, Tenderness (epigastric), Normal Bowel Sounds Additional comments: Large abdomen - Exam Additional comments: Garland Cath - Extremities Exam Extremities Exam: Normal Inspection - Back Exam Back Exam: NORMAL INSPECTION - Neurological Exam Neurological Exam: Alert, Oriented x3 Additional comments: No focal motor/sensory deficit. - Psychiatric Exam Psychiatric exam: Anxious - Skin Skin Exam: Warm Additional comments: Yellow skin, jaundice Assessment and Plan (1) Acute pancreatitis Status: Acute (2) Withdrawal symptoms, drug or narcotic Status: Acute (3) Alcohol abuse with intoxication Status: Acute (4) Alcoholic hepatitis Status: Acute (5) Hyperbilirubinemia Status: Acute (6) Abdominal pain Status: Acute (7) Jaundice Status: Acute (8) Anemia Status: Acute (9) Opiate dependence Status: Chronic - Assessment and Plan (Free Text) Plan: Continue Morphin, Zofran rest of Tx, awaiting transfer to [facility]
[2018-02-22] MEDS: Lactated Ringer's 1,000 ML IV SCH ×4 (00:26→05:29)
[2018-02-22 05:04] LABS: BASO % 0.5 % (0.0-2.0); EOS % 0.1 % (0.0-4.0); HEMOGLOBIN 8.9 g/dL (12.0-18.0); LYMPH # 0.8 K/uL (1.0-4.3); LYMPH % 14.5 % (20.0-40.0); MEAN CELL VOLUME 90.1 fl (80.0-94.0); MEAN CORPUSCULAR HEMOGLOBIN 30.8 pg (27.0-31.0); MEAN CORPUSCULAR HGB CONC 34.2 g/dL (33.0-37.0); MEAN PLATELET VOLUME 8.3 fl (7.2-11.7); MONO # 0.5 K/uL (0.0-0.8); MONO % 9.1 % (0.0-10.0); NEUT # 4.4 K/uL (1.8-7.0); NEUT % 75.8 % (50.0-75.0); RBC 2.9 Mil/uL (4.40-5.90); RED CELL DISTRIBUTION WIDTH 24.8 % (11.5-14.5); WHITE BLOOD COUNT 5.8 K/uL (4.8-10.8)
[2018-02-22 05:12] LABS: INR 5.6 (0.9-1.2)
[2018-02-22 05:13] LABS: PROTHROMBIN TIME 64.3 Seconds (9.8-13.1)
[2018-02-22 05:17] LABS: ALB/GLOB RATIO 0.5 (1.0-2.1); ALBUMIN 2.4 g/dL (3.5-5.0); CALCIUM 7.7 mg/dL (8.4-10.2)
[2018-02-22] MEDS ORDERED: Dextrose 50% SYRINGE Inj (50 ml) IVP ONE (06:09)
[2018-02-22] MEDS ORDERED: Potassium Chloride 20 mEq ER Tab PO ONE (06:13)
[2018-02-22] MEDS: Dextrose 5%/0.45% NS 1,000 ML IV SCH ×2 (06:45→17:00)
--- NOTE | 2018-02-22 09:07 | CP.PCM.PN ---
<Gregoria Carver - Last Filed: 02/22/18 12:53> Subjective - Date & Time of Evaluation Date of Evaluation: 02/22/18 Time of Evaluation: 08:00 - Subjective Subjective: PGY5 GI Follow-up Pt seen examined bedside still has abd pain, in the epigastrum Deneis any fever, chills or diaphoresis NPO no overnight events ROS: 12 point ROS conducted, neg other than above Objective - Vital Signs/Intake and Output Vital Signs (last 24 hours): Temp Pulse Resp BP Pulse Ox 97.9 F 98 H 33 H 121/70 95 02/22/18 08:00 02/22/18 08:07 02/22/18 08:00 02/22/18 08:00 02/22/18 08:00 Intake and Output: 02/22/18 02/22/18 06:59 18:59 Intake Total 5050 Output Total 900 Balance 4150 - Medications Medications: Current Medications Dextrose/Sodium Chloride (Dextrose 5%/0.45% Ns 1000 Ml) 1,000 mls @ 100 mls/hr IV .Q10H [facility] Stop: 02/23/18 06:10 Last Admin: 02/22/18 06:45 Dose: 100 mls/hr Lactulose (Enulose) 20 gm PO BID [facility] Last Admin: 02/21/18 16:53 Dose: 20 gm Lorazepam (Ativan) 1 mg IVP Q4H PRN PRN Reason: Agitation Last Admin: 02/21/18 21:05 Dose: 1 mg Morphine Sulfate (Morphine) 4 mg IVP Q3H PRN PRN Reason: pain 2-10 Last Admin: 02/22/18 06:44 Dose: 4 mg Ondansetron HCl (Zofran Inj) 4 mg IVP Q6 PRN PRN Reason: Nausea/Vomiting Last Admin: 02/21/18 23:16 Dose: 4 mg Pentoxifylline (Pentoxil) 400 mg PO TID [facility] Last Admin: 02/21/18 16:53 Dose: 400 mg Thiamine HCl (Vitamin B1 Tab) 100 mg PO DAILY [facility] Last Admin: 02/21/18 08:12 Dose: 100 mg - Labs Labs: 02/22/18 04:20 02/22/18 04:20 PT 64.3 Seconds (9.8-13.1) H* D 02/22/18 04:20 INR 5.6 (0.9-1.2) H D 02/22/18 04:20 APTT 77.1 Seconds (25.6-37.1) H 02/20/18 04:20 - Constitutional Appears: Well, No Acute Distress, Confused - Head Exam Head Exam: ATRAUMATIC, NORMOCEPHALIC - Eye Exam Eye Exam: Normal appearance Pupil Exam: NORMAL ACCOMODATION - ENT Exam ENT Exam: Mucous Membranes Moist, Normal Exam - Neck Exam Neck Exam: Normal Inspection - Respiratory Exam Respiratory Exam: Clear to Ausculation Bilateral, NORMAL BREATHING PATTERN. absent: Chest Wall Tenderness, Decreased Breath Sounds, Rales, Rhonchi, Wheezes , Respiratory Distress - Cardiovascular Exam Cardiovascular Exam: REGULAR RHYTHM, +S1, +S2 - GI/Abdominal Exam GI & Abdominal Exam: Soft, Normal Bowel Sounds. absent: Distended, Firm, Guarding, Rigid, Tenderness, Mass, Organomegaly - Extremities Exam Extremities Exam: absent: Joint Swelling, Pedal Edema - Neurological Exam Neurological Exam: Alert, Awake, Oriented x3 - Psychiatric Exam Psychiatric exam: Normal Affect, Normal Mood - Skin Skin Exam: Dry, Intact, Warm Additional comments: jaundiced Assessment and Plan - Assessment and Plan (Free Text) Assessment: 32 year old male with h/o Obesity s/p RNY gastric bypass, s/p cholecystectomy, EtOH abuse, Bipolar d/o admitted for alcohol detox. 1. Alcoholic Hepatitis 2. Anemia 3. Alcohol withdrawal 4. Acute pancreatitis likely 2/2 ETOH 5. Elevated Liver enzymes, likely 2/2 alcoholic hepatitis, r/o infectious and autoimmune etiologies 6. coagulopathy Plan: -patient will likely withdraw from etoh, supportive measures -CT triple phase 09/2017: hepatic steatosis -etoh cirrhosis vs hepatitis -advised strict etoh abstinence -EGD: 09/2017: gastritis, no evidense of esophageal varices -will increase fluids after CXR, to r/o effusions, to 250ml/hr -continue NPO for now, due to abd pain -continue lactulose for 2 BM daily -MELD 02/22/18: 40, -DF: 146 02/19/18 -accepted at [place], waiting for bed -continue pentoxifylline to 400mg TID D/W Dr. Kimball <Reuben Kimball - Last Filed: 02/22/18 15:02> Objective - Vital Signs/Intake and Output Vital Signs (last 24 hours): Temp Pulse Resp BP Pulse Ox 98.0 F 102 H 39 H 116/71 94 L 02/22/18 12:00 02/22/18 12:00 02/22/18 12:00 02/22/18 12:00 02/22/18 12:00 Intake and Output: 02/22/18 02/22/18 06:59 18:59 Intake Total 5050 Output Total 900 Balance 4150 - Medications Medications: Current Medications Dextrose/Sodium Chloride (Dextrose 5%/0.45% Ns 1000 Ml) 1,000 mls @ 100 mls/hr IV .Q10H [facility] Stop: 02/23/18 06:10 Last Admin: 02/22/18 06:45 Dose: 100 mls/hr Lactulose (Enulose) 20 gm PO BID [facility] Last Admin: 02/22/18 09:28 Dose: 20 gm Lorazepam (Ativan) 1 mg IVP Q4H PRN PRN Reason: Agitation Last Admin: 02/21/18 21:05 Dose: 1 mg Morphine Sulfate (Morphine) 4 mg IVP Q3H PRN PRN Reason: pain 2-10 Last Admin: 02/22/18 12:56 Dose: 4 mg Ondansetron HCl (Zofran Inj) 4 mg IVP Q6 PRN PRN Reason: Nausea/Vomiting Last Admin: 02/21/18 23:16 Dose: 4 mg Pentoxifylline (Pentoxil) 400 mg PO TID [facility] Last Admin: 02/22/18 13:01 Dose: 400 mg Prednisolone (Prednisolone Oral Soln) 40 mg PO DAILY [facility] Last Admin: 02/22/18 12:59 Dose: 40 mg Thiamine HCl (Vitamin B1 Tab) 100 mg PO DAILY [facility] Last Admin: 02/22/18 09:28 Dose: 100 mg - Labs Labs: 02/22/18 04:20 02/22/18 04:20 PT 64.3 Seconds (9.8-13.1) H* D 02/22/18 04:20 INR 5.6 (0.9-1.2) H D 02/22/18 04:20 APTT 77.1 Seconds (25.6-37.1) H 02/20/18 04:20 Attending/Attestation - Attestation I have personally seen and examined this patient.: Yes I have fully participated in the care of the patient.: Yes I have reviewed all pertinent clinical information, including history, physical exam and plan: Yes Notes (Text): 02/22/18 15:01 Patient seen and examined with GI fellow. This is a 32 year old male with history of HTN, MDD, BiPolar disorder, Back pain, nephrolithiasis, cholecystitis s/p cholecystectomy 03/2015, Alvin-en-Y gastric bypass 2012, and Alcohol abuse presenting for detox. Acute on chronic alcoholic liver disease with hepatic steatosis and hepatosplenomegaly and acute pancreatitis. Last admission he was transferred to [place] for alcoholic hepatitis trail and was discharged on tapering doses of steroids. He is still abusing alcohol on steroids. Yesterday we spoke to [facility] and facilitated transfer. CXR with no pleural effusion. Continue supportive care with pain control and anti-emetics. Hepatitis panel negative, autoimmune workup negative. Continue pentoxyfilline for azotemia as he was recently given steroids and he is actively drinking. Total bilirubin uptrending with coagulopathy- [facility]
[2018-02-22] MEDS ORDERED: PrednisoLONE 15 mg/5 ml Oral Syrup (240 ml) PO SCH (11:45)
--- NOTE | 2018-02-22 16:43 | CARD ---
APPROVED REPORT Date of service: 02/19/2018 EKG Measurement Heart [id number] <Conclusion> Normal sinus rhythm Prolonged QT Abnormal ECG
[2018-02-22] MEDS ORDERED: Albumin Human 25% (12.5 gm/50 ml) IV ONE (17:10)
--- NOTE | 2018-02-22 19:54 | CP.PCM.PN ---
Subjective - Date & Time of Evaluation Date of Evaluation: 02/22/18 Time of Evaluation: 08:40 - Subjective Subjective: F/U Acute Pancreatitis. C/O of back and epigastric pain Objective - Vital Signs/Intake and Output Vital Signs (last 24 hours): Temp Pulse Resp BP Pulse Ox 97.8 F 101 H 27 H 116/71 94 L 02/22/18 16:00 02/22/18 16:00 02/22/18 16:00 02/22/18 16:00 02/22/18 16:00 Intake and Output: 02/22/18 02/23/18 18:59 06:59 Intake Total 1200 Output Total 350 Balance 850 - Medications Medications: Current Medications Dextrose/Sodium Chloride (Dextrose 5%/0.45% Ns 1000 Ml) 1,000 mls @ 100 mls/hr IV .Q10H [facility] Stop: 02/23/18 06:10 Last Admin: 02/22/18 17:00 Dose: 100 mls/hr Lactulose (Enulose) 20 gm PO BID [facility] Last Admin: 02/22/18 16:59 Dose: 20 gm Lorazepam (Ativan) 1 mg IVP Q4H PRN PRN Reason: Agitation Last Admin: 02/22/18 15:58 Dose: 1 mg Morphine Sulfate (Morphine) 4 mg IVP Q3H PRN PRN Reason: pain 2-10 Last Admin: 02/22/18 17:21 Dose: 4 mg Ondansetron HCl (Zofran Inj) 4 mg IVP Q6 PRN PRN Reason: Nausea/Vomiting Last Admin: 02/21/18 23:16 Dose: 4 mg Pentoxifylline (Pentoxil) 400 mg PO TID [facility] Last Admin: 02/22/18 16:59 Dose: 400 mg Prednisolone (Prednisolone Oral Soln) 40 mg PO DAILY [facility] Last Admin: 02/22/18 12:59 Dose: 40 mg Thiamine HCl (Vitamin B1 Tab) 100 mg PO DAILY [facility] Last Admin: 02/22/18 09:28 Dose: 100 mg - Labs Labs: 02/22/18 04:20 02/22/18 04:20 PT 64.3 Seconds (9.8-13.1) H* D 02/22/18 04:20 INR 5.6 (0.9-1.2) H D 02/22/18 04:20 APTT 77.1 Seconds (25.6-37.1) H 02/20/18 04:20 - Constitutional Appears: No Acute Distress - Head Exam Head Exam: NORMAL INSPECTION - Eye Exam Eye Exam: Scleral icterus - ENT Exam ENT Exam: Normal Exam - Neck Exam Neck Exam: Normal Inspection - Respiratory Exam Respiratory Exam: Clear to Ausculation Bilateral - Cardiovascular Exam Cardiovascular Exam: REGULAR RHYTHM - GI/Abdominal Exam GI & Abdominal Exam: Soft, Normal Bowel Sounds - Extremities Exam Extremities Exam: Normal Inspection - Back Exam Back Exam: NORMAL INSPECTION - Neurological Exam Neurological Exam: Alert, Oriented x3 Additional comments: No focal motor/sensory deficit. - Psychiatric Exam Psychiatric exam: Anxious - Skin Skin Exam: Warm (Skin jaundice) Assessment and Plan (1) Acute pancreatitis Status: Acute (2) Withdrawal symptoms, drug or narcotic Status: Acute (3) Alcohol abuse with intoxication Status: Acute (4) Alcoholic hepatitis Status: Acute (5) Hyperbilirubinemia Status: Acute (6) Abdominal pain Status: Acute (7) Jaundice Status: Acute (8) Anemia Status: Acute (9) Opiate dependence Status: Chronic - Assessment and Plan (Free Text) Plan: Continue Morphin, Zofran, Steroids, Awaiting for transfer to [facility].
[2018-02-23] MEDS: Dextrose 5%/0.45% NS 1,000 ML IV SCH (03:10)
[2018-02-23 05:38] LABS: BASO % 0.5 % (0.0-2.0); HEMOGLOBIN 9.1 g/dL (12.0-18.0); LYMPH # 0.9 K/uL (1.0-4.3); LYMPH % 9.4 % (20.0-40.0); MEAN CELL VOLUME 90.8 fl (80.0-94.0); MEAN CORPUSCULAR HGB CONC 34.1 g/dL (33.0-37.0); MEAN PLATELET VOLUME 7.2 fl (7.2-11.7); MONO # 0.6 K/uL (0.0-0.8); MONO % 6.7 % (0.0-10.0); NEUT # 7.7 K/uL (1.8-7.0); NEUT % 83.4 % (50.0-75.0); PLATELET COUNT 85 K/uL (130-400); RBC 2.94 Mil/uL (4.40-5.90); WHITE BLOOD COUNT 9.2 K/uL (4.8-10.8)
[2018-02-23 06:07] LABS: ALB/GLOB RATIO 0.5 (1.0-2.1); ALBUMIN 2.5 g/dL (3.5-5.0); CALCIUM 7.8 mg/dL (8.4-10.2)
[2018-02-23 06:12] VITALS: PULSE 97
[2018-02-23] MEDS ORDERED: Potassium Chloride 20 mEq ER Tab PO ONE (06:39)
[2018-02-23] MEDS ORDERED: Potassium Chloride 20 mEq 100 ML IVPB ONE (06:40)
[2018-02-23 06:51] LABS: INR 5.6 (0.9-1.2)
[2018-02-23 06:54] LABS: PROTHROMBIN TIME 64.6 Seconds (9.8-13.1)
--- NOTE | 2018-02-23 08:43 | CP.PCM.PN ---
Subjective - Date & Time of Evaluation Date of Evaluation: 02/23/18 Time of Evaluation: 07:45 - Subjective Subjective: PGY5 GI Follow-up Pt seen and examined bedside still has abd pain wants to eat transfer to [facility] today ROS: 12 point ROS conducted, neg other than above Objective - Vital Signs/Intake and Output Vital Signs (last 24 hours): Temp Pulse Resp BP Pulse Ox 98.3 F 97 H 23 118/76 96 02/23/18 05:00 02/23/18 05:00 02/23/18 05:00 02/23/18 05:00 02/23/18 05:00 Intake and Output: 02/23/18 02/23/18 06:59 18:59 Intake Total 1100 Output Total 400 Balance 700 - Medications Medications: Current Medications Albumin Human (Albumin Human 25% (12.5 Gm/50 Ml)) 25 gm IV TID [facility] Stop: 02/23/18 17:01 Last Admin: 02/23/18 08:09 Dose: 25 gm Lactulose (Enulose) 20 gm PO BID [facility] Last Admin: 02/22/18 16:59 Dose: 20 gm Lorazepam (Ativan) 1 mg IVP Q4H PRN PRN Reason: Agitation Last Admin: 02/22/18 15:58 Dose: 1 mg Morphine Sulfate (Morphine) 4 mg IVP Q3H PRN PRN Reason: pain 2-10 Last Admin: 02/23/18 08:39 Dose: 4 mg Ondansetron HCl (Zofran Inj) 4 mg IVP Q6 PRN PRN Reason: Nausea/Vomiting Last Admin: 02/21/18 23:16 Dose: 4 mg Pentoxifylline (Pentoxil) 400 mg PO TID [facility] Last Admin: 02/22/18 16:59 Dose: 400 mg Prednisolone (Prednisolone Oral Soln) 40 mg PO DAILY [facility] Last Admin: 02/22/18 12:59 Dose: 40 mg Thiamine HCl (Vitamin B1 Tab) 100 mg PO DAILY [facility] Last Admin: 02/22/18 09:28 Dose: 100 mg - Labs Labs: 02/23/18 04:45 02/23/18 04:45 PT 64.6 Seconds (9.8-13.1) H* 02/23/18 04:45 INR 5.6 (0.9-1.2) H 02/23/18 04:45 APTT 77.1 Seconds (25.6-37.1) H 02/20/18 04:20 - Constitutional Appears: Well, No Acute Distress - Head Exam Head Exam: ATRAUMATIC, NORMOCEPHALIC - Eye Exam Eye Exam: Scleral icterus - ENT Exam ENT Exam: Mucous Membranes Moist, Normal Exam - Neck Exam Neck Exam: Normal Inspection - Respiratory Exam Respiratory Exam: Clear to Ausculation Bilateral, NORMAL BREATHING PATTERN. absent: Rales, Rhonchi, Wheezes, Respiratory Distress - Cardiovascular Exam Cardiovascular Exam: REGULAR RHYTHM, +S1, +S2 - GI/Abdominal Exam GI & Abdominal Exam: Soft, Tenderness (epigastic), Normal Bowel Sounds. absent : Distended, Guarding, Rigid, Hyperactive Bowel Sounds, Organomegaly, Rebound - Extremities Exam Extremities Exam: absent: Joint Swelling, Pedal Edema - Neurological Exam Neurological Exam: Altered, Oriented x3 - Psychiatric Exam Psychiatric exam: Normal Affect, Normal Mood - Skin Skin Exam: Dry, Intact, Warm Additional comments: jaundice Assessment and Plan - Assessment and Plan (Free Text) Assessment: 32 year old male with h/o Obesity s/p RNY gastric bypass, s/p cholecystectomy, EtOH abuse, Bipolar d/o admitted for alcohol detox. 1. Alcoholic Hepatitis 2. Anemia 3. Alcohol withdrawal 4. Acute pancreatitis likely 2/2 ETOH 5. Elevated Liver enzymes, likely 2/2 alcoholic hepatitis, r/o infectious and autoimmune etiologies 6. coagulopathy Plan: -patient will likely withdraw from etoh, supportive measures -CT triple phase 09/2017: hepatic steatosis -etoh cirrhosis vs ETOH hepatitis -advised strict etoh abstinence -EGD: 09/2017: gastritis, no evidense of esophageal varices -will continue LR at 250m.hr -continue NPO for now, due to abd pain -continue lactulose for 2 BM daily -MELD-NA 02/23/18: 33 -[facility] -continue pentoxifylline to 400mg TID, prednisolone 40mg daily will D/W Dr. Kimball
[2018-02-23] MEDS ORDERED: Albumin Human 25% (12.5 gm/50 ml) IV SCH (09:00)
[2018-02-23 09:17] LABS: LYMPHOCYTE 7 % (20-50); MONOCYTE 3 % (0-10); NEUTROPHIL 90 % (42-75); PLATELET ESTIMATE DECREASED (NORMAL); TOTAL CELLS COUNTED 100
[2018-02-23 09:18] LABS: ANISOCYTOSIS SLIGHT; SPHEROCYTES SLIGHT; TEARDROP CELLS SLIGHT
[2018-02-23 09:19] LABS: LARGE PLATELETS PRESENT
[2018-02-23 09:41] VITALS: BP 123/62; RESP 16; TEMP 97; O2SAT 98
== END 2018-02-23 09:15 | disposition short-term general hospital (02) | DRG 202 ==
LOC: H.ER 11:46 → H.ERHOLD 17:25 → H.ICU/CCU 22:46
PROVIDERS: ADMIT Internal Medicine Pulmonary Disease; ATTEND Internal Medicine Pulmonary Disease
PROC: HZ2ZZZZ Detoxification Services for Substance Abuse Treatment (ICD-10-PCS; principal; 2018-02-19)
DX: K70.10 Alcoholic hepatitis without ascites (principal); F10.239 Alcohol dependence with withdrawal, unspecified; K85.20 Alcohol induced acute pancreatitis without necrosis or infection; F11.20 Opioid dependence, uncomplicated; D68.4 Acquired coagulation factor deficiency; G89.29 Other chronic pain; Z91.19 Patient's noncompliance with other medical treatment and regimen; Z91.14 Patient's other noncompliance with medication regimen; Z98.84 Bariatric surgery status; G47.33 Obstructive sleep apnea (adult) (pediatric); E66.9 Obesity, unspecified; Z68.35 Body mass index [BMI] 35.0-35.9, adult; I10 Essential (primary) hypertension; E78.00 Pure hypercholesterolemia, unspecified; F10.229 Alcohol dependence with intoxication, unspecified; Y90.8 Blood alcohol level of 240 mg/100 ml or more; R16.2 Hepatomegaly with splenomegaly, not elsewhere classified; D64.9 Anemia, unspecified; F31.9 Bipolar disorder, unspecified; K29.70 Gastritis, unspecified, without bleeding; R79.89 Other specified abnormal findings of blood chemistry